=== PATIENT | female | born 1980 | race Caucasian/White ===

== ENCOUNTER 2017-09-26 20:33 | Emergency (ER) | payer MEDICAID, SELFPAY ==
[2017-09-26 20:34] VITALS: BP 160/95; PULSE 92; RESP 18; TEMP 36.8; O2SAT 98; BMI 46.1
--- NOTE | 2017-09-26 21:43 | CT_ITS ---
STUDY: CT BRAIN WITHOUT CONTRAST REASON FOR EXAM: Female, 37 years old. DIZZINESS x 3 days, hx colorectal ca RADIATION DOSAGE (If Supplied By Facility): CTDIvol = ( 44.99 ) mGy, DLP = ( 711.75 ) mGycm TECHNIQUE: Transaxial CT imaging of the brain was performed without administration of intravenous contrast material. Individualized dose optimization techniques were used for this CT. COMPARISON: None. FINDINGS: Normal soft tissue structures. Normal calvarium. Normal size ventricles and extra-axial spaces for the patient's age. Normal white matter tracts of the cerebral hemispheres. Normal basal ganglia and thalami. Normal brainstem. Normal cerebellum. There is no intracranial hemorrhage. There are no findings of an acute ischemic infarction. Normal visualized paranasal sinuses. CT/Brain/Head without Contrast IMPRESSION: Normal unenhanced CT scan of the brain. Electronically Signed: Reyes Rodriguez MD at 22:42 EDT Tel , Service support ,
[2017-09-26] MEDS: proMETHazine 25 MG/ML Syringe 6.25 MG IV (22:00)
[2017-09-26] MEDS: 0.9% Normal Saline 1,000 ML 1000 ML IV (22:00)
[2017-09-26 22:10] LABS: Absolute Lymphocyte Count 2.03 X10^3/ul (0.83-4.51); Absolute Neutrophil Count 5.2 X10^3/uL (2.0-7.7); Basophil# 0.04 X10^3/uL; Basophil% 0.5 % (0-1); Eosinophil# 0.26 X10^3/uL; Eosinophils% 3.2 % (0-5); Hemoglobin 13.4 g/dl (12.0-15.0); Lymphocyte # 2.03 X10^3/ul (4.0); Lymphocyte % 25.3 % (19-41); Mean Corp Hgb Conc 34.4 g/gl (32-36); Mean Corpuscular Hgb 29.1 pg (27.0-32.0); Mean Corpuscular Volume 84.6 fL (81-99); Mean Platelet Vol. 9.1 fl (6.2-12.0); Monocyte# 0.47 X10^3/uL; Monocyte% 5.9 % (0-10); Neutrophil % 64.9 % (47-70); POSITIVE COUNT NO; POSITIVE DIFFERENTIAL NO; POSITIVE MORPHOLOGY NO; Platelet Count 278 K/mm3 (150-450); RBC Distribution Width CV 13.6 % (11.6-14.6); RBC Distribution Width SD 41.3 fl (35.1-43.9); Red Blood Count 4.61 M/mm3 (4.2-5.4)
[2017-09-26 23:09] LABS: ALB/GLOB Ratio 0.9 RATIO (0.9-2.4); AST(SGOT) 28 U/L (15-37); Alanine Aminotransfer ALT/SGPT 65 U/L (13-56); Albumin, Serum 3.3 g/dL (3.2-5.0); Alkaline Phosphatase 67 U/L (45-117); Anion Gap 7 (5-15); BUN 11 mg/dL (7-18); BUN/Creat Ratio 12.8 RATIO (10-20); Calcium,Total 8.5 mg/dL (8.5-10.1); Chloride 104 mmol/L (98-107); Creatinine, Serum 0.86 mg/dL (0.55-1.02); EST Glomerular Filtration Rate 79 mL/min (>60); Est Glom Filt Rate - Afr Amer 96 mL/min (>60); Estimated Creatinine Clearance 67.59 ml/min; Globulin 3.6 g/dL (2.2-4.2); Glucose 204 mg/dL (74-106); Lipase 96 U/L (73-393); Potassium 3.6 mmol/L (3.5-5.1); Protein, Total 6.9 g/dL (6.4-8.2); Sodium Level 139 mmol/L (136-145)
--- NOTE | 2017-09-26 23:25 | ED.VISSUMM ---
- ER Visit Summary Date of Service: 09/26/17 Chief Complaint: [] Dizziness, abdominal pain, headache History of Present Illness: The patient is a 37 F [] presents with a complaint of dizziness, lightheadedness, abdominal discomfort, headache beginning 3-4 days ago. Patient reports she has liver issues. She reports she recently had a liver biopsy and is awaiting further evaluation of her abdomen. She does report a history of splenomegaly and a history of colorectal cancer with colectomy resulting colostomy and colostomy reversal. Does report an additional surgical history of appendectomy, cholecystectomy, hysterectomy. She reports feeling very weak and faint with an episode of near syncope. She denies syncope at any point. She denies chest pain or shortness of breath. Does report some slight discomfort to her left shoulder/trapezius area. Physical Examination: [] Afebrile, vital signs stable. Morbidly obese female no acute distress cardiovascular exam is regular rate and rhythm. Lungs are clear to auscultation. Abdomen is soft and nontender. No significant lower extremity edema. Test Results: [] CBC, BMP, LFTs, lipase, troponin all within normal limits. CT head negative. Emergency Department Course and Treatment: [] Patient given intravenous limits, Phenergan. On serial examination patient had improvement of symptoms and was amenable to discharge. She was counseled regarding her diagnostic and laboratory findings and will follow up with her primary care physician. Treatment Plan: [] Follow-up with PCP and/or subspecialist. Disposition: [] Discharge, stable. Impression: [] Cephalgia Abdominal pain, unknown etiology Dizziness This note was generated with [employer] dictation software. It may contain incorrect words, spelling, and punctuation that were not noted in review of the chart prior to signing ED Disposition - Plan for ED Patient: Chief Complaint: Dizziness Referrals: Zane Dutton MD [Primary Care Provider] -
--- NOTE | 2017-09-26 23:29 | ED.DEP ---
ED Disposition - Plan for ED Patient: Disposition: Home or Assisted Living Chief Complaint: Dizziness Instructions: ED Near Syncope Unkn Referrals: Zane Dutton MD [Primary Care Provider] -
[2017-09-26 23:45] VITALS: BP 124/81; PULSE 75; RESP 16; O2SAT 96
== END 2017-09-26 23:45 | disposition home or self-care (01) ==
PROVIDERS: Emergency Provider Emergency Medicine; Family Provider Family Medicine; PCP Family Medicine
DX: R51 Headache (principal); R10.9 Unspecified abdominal pain; R42 Dizziness and giddiness; R05 Cough; E11.9 Type 2 diabetes mellitus without complications; I10 Essential (primary) hypertension; E66.01 Morbid (severe) obesity due to excess calories; Z85.038 Personal history of other malignant neoplasm of large intestine; Z90.49 Acquired absence of other specified parts of digestive tract; Z90.710 Acquired absence of both cervix and uterus; Z93.3 Colostomy status
CPT/HCPCS: 70450; 80053; 83690; 84484; 85025; 96361; 96374; 99283; J7030; A4216

== ENCOUNTER 2019-06-23 19:38 | Emergency (ER) | payer OTHER, SELFPAY ==
[2019-06-23 19:39] VITALS: BP 188/114; PULSE 86; RESP 16; TEMP 36.4; O2SAT 97; BMI 43.4
--- NOTE | 2019-06-23 20:17 | CT_ITS ---
STUDY: CT BRAIN WITHOUT CONTRAST REASON FOR EXAM: Female, 39 years old. HYPERTENSION, UNBEARABLE HEADACHE RADIATION DOSAGE (If Supplied By Facility): CTDIvol = ( 44.99 ) mGy, DLP = ( 812.98 ) mGycm TECHNIQUE: Transaxial CT imaging of the brain was performed without administration of intravenous contrast material. Individualized dose optimization techniques were used for this CT. COMPARISON: September 26, 2017 FINDINGS: Normal soft tissue structures. Normal calvarium. No hydrocephalus. No visualized dense artery sign. No midline shift. Normal size ventricles and extra-axial spaces for the patient''s age. Normal white matter tracts of the cerebral hemispheres. Normal basal ganglia and thalami. Normal brainstem. Normal cerebellum. There is no intracranial hemorrhage. There are no findings of an acute ischemic infarction. Normal visualized paranasal sinuses. CT/Brain/Head without Contrast IMPRESSION: No demonstrated acute or significant intracranial abnormality. Electronically Signed: Carlos Mann MD at 21:17 EST , Service support ,
--- NOTE | 2019-06-23 20:18 | ED.DCSUM_ITS ---
- ER Visit Summary Date of Service: 06/23/19 Chief Complaint: Hypertension and headache History of Present Illness: The patient is a 39 F who presents with elevated blood pressure and headache that has been constant for the past week. Patient states her blood pressure has always been elevated but has gotten worse over the last week. Patient states she has been compliant with her antihypertensive medications. Patient states she has developed a generalized headache. Patient states she has been having some trouble seeing her computer because of the headache. Patient also admits to some photophobia. Patient denies any scotoma or other visual changes. Patient admits to some nausea and vomiting. Patient denies any fevers or chills. Patient denies any chest pain or shortness of breath. Physical Examination: Vital signs are stable except for an elevated blood pressure of 188/114. Patient is afebrile. Patient is in no acute distress. Oral mucosa is pink and moist. Neck is supple. Trachea is midline. There is no JVD noted. Heart was regular rate and rhythm. Lungs are clear and equal bilaterally. Abdomen is soft. Bowel sounds are normal. There is no tenderness. There is no rebound or guarding noted. Skin is warm dry. Cranial nerves II through XII are intact. There are no focal motor or sensory deficits noted. Extremities are intact. There is no calf tenderness or edema. Test Results: CBC, basic metabolic profile, and serum hCG were obtained and were all within normal limits. CT scan of the brain was obtained and was within normal limits. This was interpreted by the radiologist and reviewed by myself. Emergency Department Course and Treatment: Patient was given Reglan and Benadryl here. Patient was given a dose of clonidine. Patient was feeling better on reevaluation. Patient was instructed to keep a log of her blood pressures and follow-up with her primary care physician for further management of her blood pressure medications. Patient was instructed to rest in a dark quiet room. Patient was instructed to return if worse in any way. Patient understood and was agreeable with the plan. All questions were answered. Disposition: Discharge home Impression: 1. Headache 2. Hypertension This note was generated with [employer] software. It may contain incorrect words, spelling, and punctuation that were not noted in review of the chart prior to signing ED Disposition - Plan for ED Patient: Disposition: Home or Assisted Living Diagnosis: Headache, Hypertension Instructions: HYPERTENSION, Established Referrals: Zane Dutton MD [Primary Care Provider] - 3-5 Days
[2019-06-23 20:30] LABS: Absolute Lymphocyte Count 2.51 X10^3/uL (0.83-4.51); Absolute Neutrophil Count 4.3 X10^3/uL (2.0-7.7); Basophil# 0.05 X10^3/uL; Basophil% 0.6 % (0-1); Eosinophil# 0.35 X10^3/uL; Eosinophils% 4.5 % (0-5); Hematocrit 42.6 % (37-47); Hemoglobin 14.2 g/dL (12.0-15.0); Lymphocyte # 2.51 X10^3/ul (4.0); Lymphocyte % 32.3 % (19-41); Mean Corp Hgb Conc 33.3 g/dL (32-36); Mean Corpuscular Hgb 28.6 pg (27.0-32.0); Mean Corpuscular Volume 85.7 fL (81-99); Mean Platelet Vol. 8.8 fl (6.2-12.0); Monocyte# 0.47 X10^3/uL; NRBC Flagged by Analyzer 0 % (0-5); Neutrophil # 4.34 X10^3/uL (2.7-7.7); Platelet Count 281 K/mm3 (150-450); RBC Distribution Width CV 12.9 % (11.6-14.6); RBC Distribution Width SD 39.9 fl (35.1-43.9); Red Blood Count 4.97 M/mm3 (4.2-5.4); White Blood Count 7.8 K/mm3 (4.4-11.0)
[2019-06-23] MEDS: cloNIDine HCl 0.1 MG Tablet PO (20:35)
[2019-06-23] MEDS: Metoclopramide 10 MG/2 ML Vial IV (20:36)
[2019-06-23] MEDS: DiphenhydrAMINE 50 MG/ML Syringe 25 MG IV (20:36)
[2019-06-23 20:43] LABS: AST(SGOT) 26 U/L (15-37); Alanine Aminotransfer ALT/SGPT 63 U/L (13-56); Albumin, Serum 3.7 g/dL (3.2-5.0); Alkaline Phosphatase 70 U/L (45-117); Anion Gap 2 (5-15); BUN 11 mg/dL (7-18); Calcium,Total 8.9 mg/dL (8.5-10.1); Chloride 107 mmol/L (98-107); Creatinine, Serum 0.85 mg/dL (0.55-1.02); EST Glomerular Filtration Rate 79 mL/min (>60); Est Glom Filt Rate - Afr Amer 96 mL/min (>60); Estimated Creatinine Clearance 67.05 ml/min; Globulin 3.7 g/dL (2.2-4.2); Glucose 175 mg/dL (74-106); Potassium 3.9 mmol/L (3.5-5.1); Protein, Total 7.4 g/dL (6.4-8.2); Sodium Level 140 mmol/L (136-145)
[2019-06-23 21:10] VITALS: RESP 18
[2019-06-23 21:26] LABS: Internal QC Validated? YES +Cl - CLEAR BKGD; Pregnancy, Serum, hCG Quali. NEGATIVE Negative
[2019-06-23 21:27] VITALS: BP 145/91
[2019-06-23 21:42] VITALS: BP 132/76; PULSE 75; RESP 16; O2SAT 98
== END 2019-06-23 21:44 | disposition home or self-care (01) ==
PROVIDERS: Emergency Provider Emergency Medicine; PCP Family Medicine
DX: R51 Headache (principal); I10 Essential (primary) hypertension; E66.9 Obesity, unspecified; E11.9 Type 2 diabetes mellitus without complications; Z79.899 Other long term (current) drug therapy
CPT/HCPCS: 70450; 80053; 84703; 85025; 96374; 96375; 99283; A4216

== ENCOUNTER 2020-10-15 17:55 | Emergency (ER) | payer OTHER, SELFPAY ==
[2020-10-15] VITALS (7 sets, daily range): BP systolic 184–208; BP diastolic 103–110; PULSE 76–82; RESP 14–20; TEMP 36.6; O2SAT 94–96; BMI 41.6
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
[2020-10-15] MEDS: Acetaminophen 325 MG Tablet 650 MG PO (18:31)
[2020-10-15 18:47] LABS: Absolute Lymphocyte Count 1.77 X10^3/uL (0.83-4.51); Absolute Neutrophil Count 6.5 X10^3/uL (2.0-7.7); Basophil# 0.04 X10^3/uL; Basophil% 0.4 % (0-1); Eosinophil# 0.15 X10^3/uL; Eosinophils% 1.7 % (0-5); Hematocrit 45.1 % (37-47); Hemoglobin 14.7 g/dL (12.0-15.0); Lymphocyte # 1.77 X10^3/ul (0.83-4.51); Lymphocyte % 19.7 % (19-41); Mean Corp Hgb Conc 32.6 g/dL (32-36); Mean Corpuscular Hgb 27.8 pg (27.0-32.0); Mean Corpuscular Volume 85.4 fL (81-99); Mean Platelet Vol. 8.8 fl (6.2-12.0); Monocyte# 0.43 X10^3/uL; Monocyte% 4.8 % (0-10); NRBC Flagged by Analyzer 0 % (0-5); Neutrophil # 6.54 X10^3/uL (2.7-7.7); Platelet Count 340 K/mm3 (150-450); RBC Distribution Width CV 13.2 % (11.6-14.6); RBC Distribution Width SD 40.6 fl (35.1-43.9); Red Blood Count 5.28 M/mm3 (4.2-5.4)
[2020-10-15 18:50] LABS: Internal QC Validated? YES +Cl - CLEAR BKGD
[2020-10-15 18:56] LABS: Pregnancy, Serum, hCG Quali. NEGATIVE Negative
[2020-10-15 19:00] LABS: Anion Gap 7 (5-15); BUN 14 mg/dL (7-18); BUN/Creat Ratio 18.1 RATIO (10-20); Calcium,Total 9.1 mg/dL (8.5-10.1); Chloride 103 mmol/L (98-107); Creatinine, Serum 0.78 mg/dL (0.55-1.02); EST Glomerular Filtration Rate 87 mL/min (>60); Est Glom Filt Rate - Afr Amer 106 mL/min (>60); Estimated Creatinine Clearance 72.35 ml/min; Glucose 188 mg/dL (74-106); Potassium 3.9 mmol/L (3.5-5.1); Sodium Level 138 mmol/L (136-145)
[2020-10-15 19:07] LABS: Amphetamine Urine VISTA NEGATIVE (<1000 ng/mL); Barbiturate Urine VISTA NEGATIVE (< 200 ng/mL); Benzodiazepine Urine VISTA NEGATIVE (< 200 ng/mL); Cocaine Urine VISTA NEGATIVE (< 300 ng/mL); Ecstacy Urine VISTA NEGATIVE (< 500 ng/mL); Methadone Urine VISTA NEGATIVE (< 300 ng/mL); PCP Urine VISTA NEGATIVE (< 25 ng/mL); THC Urine VISTA NEGATIVE (< 50 ng/mL); Vista UDS pH Range 6
[2020-10-16] VITALS (7 sets, daily range): BP systolic 152–161; BP diastolic 80–95; PULSE 60–78; RESP 16–18; TEMP 36.6; O2SAT 99
--- NOTE | 2020-10-16 05:13 | NURSING ---
CALLED TO CHECK ON STATUS. WAS INFORMED PENDING AT [facility] BUT STILL WAITING TO HEAR BACK. CRISIS CHECK WITH OTHER HOSPITALS BUT EVERYWHERE ELSE IS FULL.
[2020-10-16] MEDS: Pantoprazole Sodium 40 MG Tablet PO (06:00)
--- NOTE | 2020-10-16 07:13 | NURSING ---
called squad, eta is 30 min
== END 2020-10-16 07:53 ==
PROVIDERS: Emergency Provider Emergency Medicine
DX: F32.9 Major depressive disorder, single episode, unspecified (principal); R45.851 Suicidal ideations
CPT/HCPCS: 36415; 80048; 80307; 82077; 84703; 85025; 87426; 99285

== ENCOUNTER 2020-10-21 02:26 | Inpatient (IN) | payer OTHER, SELFPAY ==
[2020-10-15 17:56] VITALS: BMI 41.6
[2020-10-21] VITALS (9 sets, daily range): BP systolic 95–194; BP diastolic 54–117; PULSE 53–74; RESP 16; TEMP 36.5–36.9; O2SAT 94–98; BMI 41.6; BMI 40.7
--- NOTE | 2020-10-21 02:39 | EKG12_ITS ---
Test Reason : SUBSTANCE ABUSE Blood Pressure : / mmHG Vent. Rate : 066 BPM Atrial Rate : 066 BPM P-R Int : 164 ms QRS Dur : 088 ms QT Int : 422 ms P-R-T Axes : 044 -03 025 degrees QTc Int : 442 ms Normal sinus rhythm Septal infarct , age undetermined , cannot be excluded Abnormal ECG Confirmed by SHANNON LAO, MATTHIEU ([id number]), purchasing expeditor [address] ([id number]) on 10/24/2020 9:58:23 AM Referred By: GERTRUDE Confirmed By:MATTHIEU ORTEGA MD
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
[2020-10-21 03:00] LABS: Absolute Lymphocyte Count 2.24 X10^3/uL (0.83-4.51); Absolute Neutrophil Count 5.7 X10^3/uL (2.0-7.7); Basophil# 0.05 X10^3/uL; Basophil% 0.6 % (0-1); Eosinophils% 2.3 % (0-5); Hematocrit 43.4 % (37-47); Hemoglobin 14.4 g/dL (12.0-15.0); Lymphocyte # 2.24 X10^3/ul (0.83-4.51); Lymphocyte % 25.3 % (19-41); Mean Corp Hgb Conc 33.2 g/dL (32-36); Mean Corpuscular Hgb 27.9 pg (27.0-32.0); Mean Corpuscular Volume 83.9 fL (81-99); Mean Platelet Vol. 8.7 fl (6.2-12.0); Monocyte# 0.57 X10^3/uL; Monocyte% 6.4 % (0-10); NRBC Flagged by Analyzer 0 % (0-5); Neutrophil # 5.73 X10^3/uL (2.7-7.7); Neutrophil % 64.7 % (47-70); Platelet Count 328 K/mm3 (150-450); RBC Distribution Width CV 12.8 % (11.6-14.6); RBC Distribution Width SD 38.8 fl (35.1-43.9); Red Blood Count 5.17 M/mm3 (4.2-5.4); White Blood Count 8.9 K/mm3 (4.4-11.0)
[2020-10-21 03:13] LABS: Amphetamine Urine VISTA NEGATIVE (<1000 ng/mL); Barbiturate Urine VISTA NEGATIVE (< 200 ng/mL); Benzodiazepine Urine VISTA NEGATIVE (< 200 ng/mL); Cocaine Urine VISTA NEGATIVE (< 300 ng/mL); Ecstacy Urine VISTA NEGATIVE (< 500 ng/mL); Internal QC Validated? YES +Cl - CLEAR BKGD; Methadone Urine VISTA NEGATIVE (< 300 ng/mL); PCP Urine VISTA NEGATIVE (< 25 ng/mL); Pregnancy, Serum, hCG Quali. NEGATIVE Negative; THC Urine VISTA NEGATIVE (< 50 ng/mL); Vista UDS pH Range 7
[2020-10-21 03:24] LABS: Alcohol, Blood (Medical)-Serum < 3.0 mg/dL
[2020-10-21 03:36] LABS: AST(SGOT) 10 U/L (15-37); Alanine Aminotransfer ALT/SGPT 47 U/L (13-56); Albumin, Serum 3.8 g/dL (3.2-5.0); Alkaline Phosphatase 88 U/L (45-117); Anion Gap 8 (5-15); BUN 8 mg/dL (7-18); BUN/Creat Ratio 10.7 RATIO (10-20); Calcium,Total 8.4 mg/dL (8.5-10.1); Chloride 106 mmol/L (98-107); Creatinine, Serum 0.75 mg/dL (0.55-1.02); EST Glomerular Filtration Rate 91 mL/min (>60); Est Glom Filt Rate - Afr Amer 111 mL/min (>60); Estimated Creatinine Clearance 75.24 ml/min; Glucose 184 mg/dL (74-106); Protein, Total 7.8 g/dL (6.4-8.2); Sodium Level 141 mmol/L (136-145)
[2020-10-21] MEDS: cloNIDine HCl 0.1 MG Tablet PO (03:52)
--- NOTE | 2020-10-21 04:02 | PCM.HP.STD ---
HPI - General General Date of Admission: 10/21/20 Date of Service: 10/21/20 Chief Complaint: Alcohol withdrawal HPI Narrative FATUMA MCCORMICK, is a 40 F who presents to the emergency room at [facility] requesting services for alcohol withdrawal. Patient states she drinks approximately 6 pack a day, she has a history of depression and hypertension, she states she does not take medications for either one of them because she did not think she needed antidepressants and she does not like the doctor who prescribed her blood pressure medications. According to the ER physician, patient has recently had a psychiatric admission for suicidal ideation last week. The ER physician stated that the patient was drinking on the evening of 10/20/2020 and when she got home she had some kind of social altercation, she was instructed by her family to seek detox services at [facility]. Patient complains of this examiner of nausea and headache. Labs obtained in the emergency room were remarkable for a glucose of 184, CBC was unremarkable, urine tox screen was negative, ethyl alcohol level was under 3. It is my opinion that the patient is confabulating some of her history, it is obvious she is not taking benzodiazepines-she told the emergency room physician she was taking them from her friend-up to 3 Xanax is a day, and it appears from her low alcohol level, she is not drinking as much as she states she was tonight. She told the emergency room doctor that she was at a bar and drank at least 12 drinks last night. Patient will be admitted to the alcohol detox program at [facility], orders were entered using the alcohol detox order set, on examination, patient appears slightly nervous but does not appear to be actively undergoing withdrawal at this time per my impression. [facility] Medical History Alcohol use Anxiety Depression Diabetes Hypertension Home Medications buspirone 5 mg PO TID 10/21/20 [History Last Taken Unknown] escitalopram oxalate 10 mg PO DAILY 10/21/20 [History Last Taken Unknown] trazodone 50 mg PO DAILY 10/21/20 [History Last Taken Unknown] Allergy/AdvReac Type Severity Reaction Status Date / Time aspirin Allergy Shortness Verified 10/21/20 02:31 of breath hydrocodone bitartrate Allergy Other Verified 10/21/20 02:31 [From Vicodin] morphine Allergy Other Verified 10/21/20 02:31 sulfamethoxazole Allergy Itching Verified 10/21/20 02:31 [From Bactrim] trimethoprim [From Bactrim] Allergy Itching Verified 10/21/20 02:31 Social History (Updated 10/21/20 @ 02:[address] Robb Longo, DO) Smoking Status: Never smoker substance use type: other details: Benzodiazepines ROS Constitutional Constitutional: Denies anorexia, change in weight, fever(s), night sweats or weakness Eyes Eyes: Denies blurry vision, change in vision, discharge from eye(s) or eye pain Cardiovascular Cardiovascular: Denies chest pain, claudication, edema or palpitations Respiratory/Chest Respiratory/Chest: Denies cough, hemoptysis, shortness of breath at rest or shortness of breath with exertion Gastrointestinal Gastrointestinal: Reports nausea; Denies abdominal pain, constipation, diarrhea, hematemesis, hematochezia, melena or vomiting Genitourinary Genitourinary: Denies dysuria, hematuria, urinary frequency, urinary hesitancy, urinary incontinence or urinary urgency Musculoskeletal Musculoskeletal: Denies back pain, joint pain, joint stiffness, joint swelling, myalgias or neck pain Neurologic Neurologic: Reports headache(s); Denies abnormal gait, abnormal speech, dizziness, focal weakness, loss of vision, numbness, other visual disturbances, paresthesias, syncope or tingling Psychiatric Psychiatric: Denies anxiety, cognitive impairment, depression, irritability, mood swings or suicidal ideation Endocrine Endocrinology: Denies change in body appearance, cold intolerance, excessive sweating, heat intolerance, polydipsia or polyuria Hematologic/Lymphatic Hematologic/Lymphatic: Denies none, anemia, easy bleeding, easy bruising or lymphadenopathy Allergic/Immunologic Allergic/Immunologic: Denies rhinitis, urticaria, eczemia or asthma Vital Signs Vital Signs Vital Signs: 10/21/20 02:26 Temperature 98.4 F Temperature Source Temporal Pulse Rate 74 Respiratory Rate 16 Blood Pressure 194/117 H Blood Pressure Mean 142 Pulse Ox 96 Oxygen Delivery Method Room Air Weight Weight: 100 kg Body Mass Index (BMI) 41.6 Physical Exam Const Constitutional Narrative: Patient appears slightly nervous at the time of my examination General Appearance: well kempt and well developed Orientation / Consciousness: awake, oriented to person, oriented to place and oriented to time HEENT normocephalic, head/scalp atraumatic, hearing grossly normal bilaterally and moist oral mucous membranes Eyes PERRL, EOMs intact bilaterally and conjunctivae normal Neck nuchal rigidity, supple, no JVD, thyroid normal and no carotid bruits General: trachea midline Resp normal respiratory effort, no retractions, no use of accessory muscles and clear to auscultation bilaterally Auscultation: Negative for rales, rhonchi or wheezes Cardio regular rate, regular rhythm, S1 normal heart sound, S2 normal heart sound, no murmurs, no rub, no gallops and no clicks GI normal to inspection, nondistended, normoactive bowel sounds, soft to palpation, non-tender and non-distended Extremity normal to inspection, full ROM and no clubbing, cyanosis or edema Skin no rashes or lesions noted General Skin Exam: no breakdown Neuro oriented x3, CN's II-XII intact bilaterally, moves all extremities, no focal motor deficits and no sensory deficits noted Sensorium / Orientation: awake and alert Speech: speech normal Motor Exam: strength 5/5 throughout Psych thought process normal Psych Narrative: Patient appears mildly nervous, she is fidgety during my examination, her affect is flat she appears mildly depressed. Results Lab / Micro Data Result Diagrams: 10/21/20 02:50 10/21/20 02:50 Labs: Laboratory Results - last 24 hr 10/21/20 10/21/20 10/21/20 02:50 02:50 02:50 WBC 8.9 RBC 5.17 Hgb 14.4 Hct 43.4 MCV 83.9 MCH 27.9 MCHC 33.2 RDW Std Deviation 38.8 RDW Coeff of Layne 12.8 Plt Count 328 MPV 8.7 Immature Gran % (Auto) 0.700 Neut % (Auto) 64.7 Lymph % (Auto) 25.3 [place] % (Auto) 6.4 Eos % (Auto) 2.3 Baso % (Auto) 0.6 Absolute Neuts (auto) 5.7 Absolute Lymphs (auto) 2.24 Nucleated RBC % 0 Sodium 141 Potassium 4.0 Chloride 106 Carbon Dioxide 27.0 Anion Gap 8 BUN 8 Creatinine 0.75 Estim Creat Clear Calc 75.24 Est GFR (MDRD) Af Amer 111 Est GFR (MDRD) Non-Af 91 BUN/Creatinine Ratio 10.7 Glucose 184 H Calcium 8.4 L Total Bilirubin 0.30 AST 10 L ALT 47 Alkaline Phosphatase 88 Total Protein 7.8 Albumin 3.8 Globulin 4.0 Albumin/Globulin Ratio 1.0 Serum , Qual NEGATIVE Urine Opiates Screen Urine Methadone Screen Ur Barbiturates Screen Ur Phencyclidine Scrn Ur Amphetamines Screen U Methamphetamin-MDMA U Benzodiazepines Scrn Urine Cocaine Screen U Cannabinoids Screen Ur Drug Screen Comment Ethyl Alcohol 10/21/20 10/21/20 02:50 02:50 WBC RBC Hgb Hct MCV MCH MCHC RDW Std Deviation RDW Coeff of Layne Plt Count MPV Immature Gran % (Auto) Neut % (Auto) Lymph % (Auto) [place] % (Auto) Eos % (Auto) Baso % (Auto) Absolute Neuts (auto) Absolute Lymphs (auto) Nucleated RBC % Sodium Potassium Chloride Carbon Dioxide Anion Gap BUN Creatinine Estim Creat Clear Calc Est GFR (MDRD) Af Amer Est GFR (MDRD) Non-Af BUN/Creatinine Ratio Glucose Calcium Total Bilirubin AST ALT Alkaline Phosphatase Total Protein Albumin Globulin Albumin/Globulin Ratio Serum , Qual Urine Opiates Screen NEGATIVE Urine Methadone Screen NEGATIVE Ur Barbiturates Screen NEGATIVE Ur Phencyclidine Scrn NEGATIVE Ur Amphetamines Screen NEGATIVE U Methamphetamin-MDMA NEGATIVE U Benzodiazepines Scrn NEGATIVE Urine Cocaine Screen NEGATIVE U Cannabinoids Screen NEGATIVE Ur Drug Screen Comment Ethyl Alcohol < 3.0 Assessment & Plan Assessment/Plan (1) Alcohol abuse: PLAN: 1. Alcohol withdrawal-again, this examiner is skeptical that she is actively going through alcohol withdrawal at this time but she requests admission services for alcohol detox. Patient will be admitted to [place] [id number], orders were entered using alcohol detox order set, she will be seen by addiction social work supervisor. #2 uncontrolled hypertension-secondary to noncompliance with medication, I have placed the patient on lisinopril and amlodipine #3 type 2 diabetes-patient will be placed on an 1800-calorie diabetic diet, fingerstick blood sugars will be ordered with sliding scale insulin coverage #4 chronic alcoholism #5 chronic anxiety and depression #6 noncompliance with medical regimen Charges/Coding Visit Charges Inpatient E&M: 51336 Init Hosp L3
[2020-10-21] MEDS: Phenobarbital 32.4 MG Tablet 64.8 MG PO ×4 (05:13→21:34)
[2020-10-21] MEDS: amLODIPine 5 MG Tablet PO (05:14)
[2020-10-21] MEDS: Lisinopril 20 MG Tablet PO (05:14)
[2020-10-21] MEDS: busPIRone 5 MG Tablet PO ×2 (06:33→21:43)
[2020-10-21 06:40] LABS: Bedside Glucose 140 mg/dL (70-110)
[2020-10-21] MEDS: Folic Acid 1 MG Tablet PO (09:06)
[2020-10-21] MEDS: Thiamine Hydrochloride 100 MG Tablet PO ×2 (09:06→17:28)
[2020-10-21] MEDS: traZODone 50 MG Tablet PO (09:07)
[2020-10-21] MEDS: Escitalopram Oxalate 10 MG Tablet PO (09:07)
[2020-10-21] MEDS: Ibuprofen 600 MG Tablet PO (09:19)
[2020-10-21] MEDS: Dicyclomine 10 MG Capsule 20 MG PO (09:19)
--- NOTE | 2020-10-21 10:54 | PN.HOSP_ITS ---
Subjective Subjective Patient seen and examined. She is being managed for acute alcohol withdrawal. Patient has no complaints this morning. Review of systems otherwise negative. She has remained hemodynamically stable. She is on alcohol withdrawal protocol with phenobarbital. Objective Data Objective Data Vital Signs: Vital Signs Temp Pulse Resp BP Pulse Ox 97.7 F L 66 16 115/69 96 10/21/20 09:03 10/21/20 09:03 10/21/20 09:03 10/21/20 09:03 10/21/20 09:03 Oxygen Delivery Method Room Air Weight: 215 lb 9 oz Body Mass Index (BMI) 40.7 Lab / Micro Data Result Diagrams: 10/21/20 02:50 10/21/20 02:50 Labs: Laboratory Results - last 24 hr 10/21/20 10/21/20 10/21/20 02:50 02:50 02:50 WBC 8.9 RBC 5.17 Hgb 14.4 Hct 43.4 MCV 83.9 MCH 27.9 MCHC 33.2 RDW Std Deviation 38.8 RDW Coeff of Layne 12.8 Plt Count 328 MPV 8.7 Immature Gran % (Auto) 0.700 Neut % (Auto) 64.7 Lymph % (Auto) 25.3 [place] % (Auto) 6.4 Eos % (Auto) 2.3 Baso % (Auto) 0.6 Absolute Neuts (auto) 5.7 Absolute Lymphs (auto) 2.24 Nucleated RBC % 0 Sodium 141 Potassium 4.0 Chloride 106 Carbon Dioxide 27.0 Anion Gap 8 BUN 8 Creatinine 0.75 Estim Creat Clear Calc 75.24 Est GFR (MDRD) Af Amer 111 Est GFR (MDRD) Non-Af 91 BUN/Creatinine Ratio 10.7 Glucose 184 H Calcium 8.4 L Total Bilirubin 0.30 AST 10 L ALT 47 Alkaline Phosphatase 88 Total Protein 7.8 Albumin 3.8 Globulin 4.0 Albumin/Globulin Ratio 1.0 Serum , Qual NEGATIVE Urine Opiates Screen Urine Methadone Screen Ur Barbiturates Screen Ur Phencyclidine Scrn Ur Amphetamines Screen U Methamphetamin-MDMA U Benzodiazepines Scrn Urine Cocaine Screen U Cannabinoids Screen Ur Drug Screen Comment Ethyl Alcohol POC Glucose 10/21/20 10/21/20 10/21/20 02:50 02:50 06:32 WBC RBC Hgb Hct MCV MCH MCHC RDW Std Deviation RDW Coeff of Layne Plt Count MPV Immature Gran % (Auto) Neut % (Auto) Lymph % (Auto) [place] % (Auto) Eos % (Auto) Baso % (Auto) Absolute Neuts (auto) Absolute Lymphs (auto) Nucleated RBC % Sodium Potassium Chloride Carbon Dioxide Anion Gap BUN Creatinine Estim Creat Clear Calc Est GFR (MDRD) Af Amer Est GFR (MDRD) Non-Af BUN/Creatinine Ratio Glucose Calcium Total Bilirubin AST ALT Alkaline Phosphatase Total Protein Albumin Globulin Albumin/Globulin Ratio Serum , Qual Urine Opiates Screen NEGATIVE Urine Methadone Screen NEGATIVE Ur Barbiturates Screen NEGATIVE Ur Phencyclidine Scrn NEGATIVE Ur Amphetamines Screen NEGATIVE U Methamphetamin-MDMA NEGATIVE U Benzodiazepines Scrn NEGATIVE Urine Cocaine Screen NEGATIVE U Cannabinoids Screen NEGATIVE Ur Drug Screen Comment Ethyl Alcohol < 3.0 POC Glucose 140 H Physical Exam Const alert, oriented x3 and no apparent distress Exam Limitations: no limitations Nutritional Appearance: cachectic HEENT head/scalp atraumatic, moist oral mucous membranes and oropharynx normal Head and Scalp: normocephalic Eyes PERRL, EOMs intact bilaterally and conjunctivae normal Neck no lymphadenopathy, supple and no JVD Resp normal respiratory effort, no retractions, no use of accessory muscles and clear to auscultation bilaterally Cardio regular rate, regular rhythm, S1 normal heart sound, S2 normal heart sound and no murmurs GI normal to inspection, nondistended, normoactive bowel sounds, soft to palpation, non-tender and non-distended Extremity normal to inspection, full ROM and no clubbing, cyanosis or edema Peripheral Pulses: Yes pulses 2+ throughout Skin no rashes or lesions noted Neuro oriented x3 Sensorium / Orientation: awake and alert Psych affect normal Assessment & Plan Assessment/Plan (1) Alcohol abuse: PLAN: #Acute alcohol withdrawal * on alcohol withdrawal protocol with phenobarbital * on multivite, folic acid and thiamine * monitor CIWA score * #Hypertension: On amlodipine and lisinopril #Type 2 diabetes mellitus: On insulin sliding scale. Accu-Cheks AC at bedtime. DVT prophylaxis: low risk, encourage ambulation Charges/Coding Visit Charges Inpatient E&M: 15382 Subs Hosp L2
--- NOTE | 2020-10-21 10:57 | CASEMGMT ---
SW Note SW Referral: Casemanager as patient is in RAMP SW Reason for Referral: Ramp Program SW called Jacki Colin RN and she was unaware if Treatment Navigator had been advised of patient's admission. RANJAN called Dee Dee Treatment Navigator at [facility], and she advised that she was called last night about patient but was unsure if patient was admitted. RANJAN advised patient was in Room 303. Dee Dee advised she would be in today to speak to patient. RANJAN updated Jacki Colin RN, that Dee Dee from [facility] will be in today to speak to patient. No further Social Work needs at this time Plan: Follow up with [facility] Gisella ROGER
[2020-10-21 11:30] LABS: Bedside Glucose 192 mg/dL (70-110)
[2020-10-21] MEDS: Insulin Lispro 100 UNIT/ML INSULN.PEN SC (11:53)
[2020-10-21 16:31] LABS: Bedside Glucose 147 mg/dL (70-110)
[2020-10-21 21:51] LABS: Bedside Glucose 129 mg/dL (70-110)
[2020-10-22] VITALS (7 sets, daily range): BP systolic 110–137; BP diastolic 61–76; PULSE 55–75; RESP 16; TEMP 36.4–36.8; O2SAT 97–100
[2020-10-22] MEDS: Phenobarbital 32.4 MG Tablet 64.8 MG PO ×6 (01:29→21:24)
[2020-10-22] MEDS: busPIRone 5 MG Tablet PO ×3 (05:09→21:25)
[2020-10-22 06:56] LABS: Bedside Glucose 128 mg/dL (70-110)
--- NOTE | 2020-10-22 07:53 | PN.HOSP_ITS ---
Subjective Subjective Patient seen and examined. She has no complaints. Review of systems is otherwise negative. Objective Data Objective Data Vital Signs: Vital Signs Temp Pulse Resp BP Pulse Ox 97.6 F L 55 L 16 110/69 100 10/22/20 06:34 10/22/20 06:34 10/22/20 06:34 10/22/20 06:34 10/22/20 06:34 Oxygen Flow Rate (L/min) 95 Oxygen Delivery Method Room Air Weight: 215 lb 9 oz Body Mass Index (BMI) 40.7 Intake & Output: Intake and Output for Last 24 Hours 10/20/20 10/21/20 10/22/20 23:59 23:59 23:59 Intake Total 350 / 350 Output Total 0 / 0 Balance 350 / 350 0 / 0 Lab / Micro Data Result Diagrams: 10/21/20 02:50 10/21/20 02:50 Labs: Laboratory Results - last 24 hr 10/21/20 10/21/20 10/21/20 11:16 15:59 21:42 POC Glucose 192 H 147 H 129 H 10/22/20 06:28 POC Glucose 128 H Physical Exam Const alert, oriented x3 and no apparent distress General Appearance: well kempt and well developed Orientation / Consciousness: awake, oriented to person, oriented to place and oriented to time Exam Limitations: no limitations Nutritional Appearance: cachectic HEENT normocephalic, head/scalp atraumatic, hearing grossly normal bilaterally, moist oral mucous membranes and oropharynx normal Head and Scalp: normocephalic Eyes PERRL, EOMs intact bilaterally and conjunctivae normal Neck nuchal rigidity, no lymphadenopathy, supple, no JVD, thyroid normal and no carotid bruits General: trachea midline Resp normal respiratory effort, no retractions, no use of accessory muscles and clear to auscultation bilaterally Auscultation: Negative for rales, rhonchi or wheezes Cardio regular rate, regular rhythm, S1 normal heart sound, S2 normal heart sound, no murmurs, no rub, no gallops and no clicks GI normal to inspection, nondistended, normoactive bowel sounds, soft to palpation, non-tender and non-distended Extremity normal to inspection, full ROM and no clubbing, cyanosis or edema Skin no rashes or lesions noted General Skin Exam: no breakdown Neuro oriented x3, CN's II-XII intact bilaterally, moves all extremities, no focal motor deficits and no sensory deficits noted Sensorium / Orientation: awake and alert Speech: speech normal Motor Exam: strength 5/5 throughout Psych thought process normal and affect normal Assessment & Plan Assessment/Plan (1) Alcohol abuse: PLAN: #Acute alcohol withdrawal * on alcohol withdrawal protocol with phenobarbital * on multivite, folic acid and thiamine * monitor CIWA score * #Hypertension: On amlodipine and lisinopril #Type 2 diabetes mellitus: On insulin sliding scale. Accu-Cheks AC at bedtime. DVT prophylaxis: low risk, encourage ambulation Charges/Coding Visit Charges Inpatient E&M: 40634 Subs Hosp L2
[2020-10-22] MEDS: Folic Acid 1 MG Tablet PO (08:51)
[2020-10-22] MEDS: Thiamine Hydrochloride 100 MG Tablet PO ×2 (08:51→17:11)
[2020-10-22] MEDS: Lisinopril 20 MG Tablet PO (10:08)
[2020-10-22] MEDS: amLODIPine 5 MG Tablet PO (10:09)
[2020-10-22] MEDS: Escitalopram Oxalate 10 MG Tablet PO (10:09)
[2020-10-22] MEDS: traZODone 50 MG Tablet PO (10:09)
[2020-10-22] MEDS: Insulin Lispro 100 UNIT/ML INSULN.PEN SC ×3 (11:41→21:25)
[2020-10-22] MEDS: Gabapentin 300 MG Capsule PO (11:43)
[2020-10-22 11:55] LABS: Bedside Glucose 220 mg/dL (70-110)
[2020-10-22 17:20] LABS: Bedside Glucose 221 mg/dL (70-110)
[2020-10-22] MEDS: Dicyclomine 10 MG Capsule 20 MG PO (17:45)
[2020-10-22] MEDS: Ibuprofen 600 MG Tablet PO (21:29)
[2020-10-22 21:36] LABS: Bedside Glucose 211 mg/dL (70-110)
[2020-10-23] MEDS: Phenobarbital 32.4 MG Tablet 64.8 MG PO ×3 (01:01→09:19)
[2020-10-23] MEDS: busPIRone 5 MG Tablet PO (05:19)
[2020-10-23 05:22] VITALS: BP 108/75; PULSE 53; RESP 16; TEMP 35.9; O2SAT 96
[2020-10-23 06:40] LABS: Bedside Glucose 143 mg/dL (70-110)
[2020-10-23 09:11] VITALS: BP 127/82; PULSE 56; RESP 18; TEMP 36.4; O2SAT 98
[2020-10-23] MEDS: Lisinopril 20 MG Tablet PO (09:19)
[2020-10-23] MEDS: Thiamine Hydrochloride 100 MG Tablet PO (09:19)
[2020-10-23] MEDS: Folic Acid 1 MG Tablet PO (09:19)
[2020-10-23] MEDS: amLODIPine 5 MG Tablet PO (09:19)
[2020-10-23] MEDS: Escitalopram Oxalate 10 MG Tablet PO (09:19)
[2020-10-23] MEDS: Insulin Lispro 100 UNIT/ML INSULN.PEN SC (11:19)
[2020-10-23 12:21] LABS: Bedside Glucose 169 mg/dL (70-110)
--- NOTE | 2020-10-23 13:35 | PCM.DC ---
Discharge Instructions Diet Discharge Diet: No restrictions Activity Discharge Activity: Return to Normal Activity Dressing / Incision Call your doctor if you observe: Fever of 101 or Higher, Shortness of breath, Dizziness, Fainting spells, Swelling in the ankles and Chest pain Follow Up Care Test Results: Test results from this visit will be discussed in further detail at your follow-up appointment, if applicable. Discharge Plan Admission Admit Date/Time: 10/21/20 04:01 Attending Provider: Johnny López Primary Care Provider: Care Physician,No Primary Instructions Patient Instructions: ED Alcohol Abuse Discharge Orders/Prescriptions Prescriptions: Continued buspirone 5 mg tablet 5 mg PO TID RF: 0 trazodone 50 mg tablet 50 mg PO QHS RF: 0 escitalopram oxalate 10 mg tablet 10 mg PO DAILY RF: 0 Referrals / Follow Up: Care Physician,No Primary [Primary Care Provider] - Disposition Disposition (needs filled in before D/C Order can be placed): Home, self care
[2020-10-23 13:52] VITALS: BP 121/80; PULSE 78; RESP 18; TEMP 36.8; O2SAT 97
--- NOTE | 2020-10-23 14:48 | PHA.DC.MR ---
Pharmacy Service has performed discharge medication reconciliation for this patient. The patient's discharge medication list was reviewed for discrepancies and discrepancies were resolved. Home Medications buspirone 5 mg PO TID 10/21/20 escitalopram oxalate 10 mg PO DAILY 10/21/20 trazodone 50 mg PO QHS 10/21/20
--- NOTE | 2020-10-23 16:52 | PCM.DC.SUM ---
Providers Date of Admission: 10/21/20 Primary Care Physician: No Primary Care Phys Reason For Visit: ALCOHOL WITHDRAWAL Diagnosis Discharge Diagnosis (1) Alcohol abuse: Status: Acute Code(s): F10.10 - Alcohol abuse, uncomplicated Medications at Discharge Home Medications buspirone 5 mg PO TID 10/21/20 escitalopram oxalate 10 mg PO DAILY 10/21/20 trazodone 50 mg PO QHS 10/21/20 Hospital Course Operations None Procedures None Summary of Care Provided Minutes Spent on Discharge: 35 Hospital Course: Per HPI: FATUMA MCCORMICK, is a 40 F who presents to the emergency room at [facility] requesting services for alcohol withdrawal. Patient states she drinks approximately 6 pack a day, she has a history of depression and hypertension, she states she does not take medications for either one of them because she did not think she needed antidepressants and she does not like the doctor who prescribed her blood pressure medications. According to the ER physician, patient has recently had a psychiatric admission for suicidal ideation last week. The ER physician stated that the patient was drinking on the evening of 10/20/2020 and when she got home she had some kind of social altercation, she was instructed by her family to seek detox services at [facility]. Patient complains of this examiner of nausea and headache. Labs obtained in the emergency room were remarkable for a glucose of 184, CBC was unremarkable, urine tox screen was negative, ethyl alcohol level was under 3. It is my opinion that the patient is confabulating some of her history, it is obvious she is not taking benzodiazepines-she told the emergency room physician she was taking them from her friend-up to 3 Xanax is a day, and it appears from her low alcohol level, she is not drinking as much as she states she was tonight. She told the emergency room doctor that she was at a bar and drank at least 12 drinks last night. Patient will be admitted to the alcohol detox program at [facility], orders were entered using the alcohol detox order set, on examination, patient appears slightly nervous but does not appear to be actively undergoing withdrawal at this time per my impression. Hospital Course: 1. Acute alcohol [id number] female presented to the emergency room requesting detox services. She drinks about a sixpack a day and has a history of depression and apparently hypertension when she does not take any medications for. When she initially presented to the hospital she was hypertensive though on the day of admission her hypertension had improved despite not being given the antihypertensive medications. My concern is that her hypertension was secondary to withdrawal symptoms and that it improved with phenobarbital administration instead. I do recommend that she follow-up with her PCP to have outpatient blood pressure monitoring and and continued adjustment of her medications. She has a rehab program that she will call on her own and did not want to go through 180. Encourage continued cessation however she felt good today and wanted to go home despite not being here for 3 days. During her stay her maximum CIWA was of 3. I discussed with her the plan for discharge and she expressed understanding of the risks and benefits of going home and wants to go home today. Physical Exam Const alert, oriented x3 and no apparent distress HEENT normocephalic and moist oral mucous membranes Eyes PERRL, EOMs intact bilaterally and conjunctivae normal Neck supple and no JVD Resp normal respiratory effort, no retractions, no use of accessory muscles and clear to auscultation bilaterally Auscultation: Negative for crackles, rales, rhonchi or wheezes Cardio regular rate, regular rhythm, S1 normal heart sound, S2 normal heart sound and no murmurs GI soft to palpation, non-tender and non-distended; Negative for hepatosplenomegaly Extremity no clubbing, cyanosis or edema Skin no rashes or lesions noted Neuro no focal motor deficits and no sensory deficits noted Psych affect normal ABG / Lab / Microbiology Data Result Diagrams: 10/21/20 02:50 10/21/20 02:50 Laboratory: Laboratory Results - last 24 hr 10/22/20 10/22/20 10/23/20 17:02 21:23 06:37 POC Glucose 221 H 211 H 143 H 10/23/20 11:18 POC Glucose 169 H D/C Instructions Discharge Diet: No restrictions Call your doctor if you observe: Fever of 101 or Higher, Shortness of breath, Dizziness, Fainting spells, Swelling in the ankles and Chest pain Meaningful Use Info Meaningful Use Diagnoses (Choose all that apply): None applicable Discharge Plan Admission Admit Date/Time: 10/21/20 04:01 Attending Provider: Johnny López Primary Care Provider: Care Physician,No Primary Instructions Patient Instructions: ED Alcohol Abuse Discharge Orders/Prescriptions Prescriptions: Continued buspirone 5 mg tablet 5 mg PO TID RF: 0 trazodone 50 mg tablet 50 mg PO QHS RF: 0 escitalopram oxalate 10 mg tablet 10 mg PO DAILY RF: 0 Referrals / Follow Up: Care Physician,No Primary [Primary Care Provider] - Disposition Disposition (needs filled in before D/C Order can be placed): Home, self care Charges/Coding Visit Charges Inpatient E&M: 20128 Disch Hosp
== END 2020-10-23 15:29 | disposition home or self-care (01) | DRG 897 ==
LOC: ED 03:04 → MS3 04:07
PROVIDERS: Student in an Organized Health Care Education/Training Program; Admitting Provider Internal Medicine; Emergency Provider Emergency Medicine; Visit Provider Family Medicine
DX: F10.239 Alcohol dependence with withdrawal, unspecified (principal); E11.9 Type 2 diabetes mellitus without complications; I10 Essential (primary) hypertension; Z91.14 Patient's other noncompliance with medication regimen; F32.9 Major depressive disorder, single episode, unspecified; F41.9 Anxiety disorder, unspecified
CPT/HCPCS: 80053; 80307; 82077; 82962; 84703; 85025; 93005; 99283; 99406

== ENCOUNTER 2021-01-25 19:44 | Emergency (ER) | payer OTHER, SELFPAY ==
[2021-01-25 19:45] VITALS: BP 140/89; PULSE 66; RESP 15; TEMP 36.9; O2SAT 96; BMI 45.3
--- NOTE | 2021-01-25 21:03 | RAD_ITS ---
INDICATION: SOB EXAMINATION/TECHNIQUE: X-RAY - XR Chest 1 View COMPARISON: None. FINDINGS: LINES/DEVICES: None. LUNGS: Consolidation involving the right mid lung does not obscure right heart border right hemidiaphragm; peripheral pneumonia. Lungs are otherwise clear. No pleural effusion. No pneumothorax. MEDIASTINUM AND CARDIOVASCULAR STRUCTURES: Cardiac silhouette not enlarged. Central airways and mediastinal contour are unremarkable. No evidence of lymphadenopathy. BONES AND SOFT TISSUES: No fracture or focal osseous lesion. RAD/Chest 1 View IMPRESSION: Right-sided pneumonia likely involving lower lobe, superior segment. Electronically Signed: Baldemar Brannon DO at 21:21 EDT Tel , Service support ,
[2021-01-25] MEDS: Ketorolac 15 MG/ML Vial IV (22:03)
[2021-01-25] MEDS: 0.9% Normal Saline 1,000 ML 1000 ML IV (22:03)
[2021-01-25 22:11] VITALS: PULSE 74; RESP 18; O2SAT 93
[2021-01-25 22:16] LABS: Absolute Lymphocyte Count 0.99 X10^3/uL (0.83-4.51); Absolute Neutrophil Count 4.6 X10^3/uL (2.0-7.7); Basophil# 0.02 X10^3/uL; Basophil% 0.3 % (0-1); Hematocrit 40.2 % (37-47); Lymphocyte # 0.99 X10^3/ul (0.83-4.51); Lymphocyte % 16.6 % (19-41); Mean Corp Hgb Conc 32.3 g/dL (32-36); Mean Corpuscular Hgb 27.5 pg (27.0-32.0); Mean Corpuscular Volume 85.2 fL (81-99); Mean Platelet Vol. 9.7 fl (6.2-12.0); Monocyte# 0.33 X10^3/uL; Monocyte% 5.5 % (0-10); NRBC Flagged by Analyzer 0 % (0-5); Neutrophil # 4.62 X10^3/uL (2.7-7.7); Neutrophil % 77.3 % (47-70); Platelet Count 190 K/mm3 (150-450); RBC Distribution Width CV 13.2 % (11.6-14.6); RBC Distribution Width SD 41.4 fl (35.1-43.9); Red Blood Count 4.72 M/mm3 (4.2-5.4)
[2021-01-25 22:32] LABS: Anion Gap 6 (5-15); BUN 17 mg/dL (7-18); BUN/Creat Ratio 20.8 RATIO (10-20); Calcium,Total 8.5 mg/dL (8.5-10.1); Chloride 104 mmol/L (98-107); Creatinine, Serum 0.82 mg/dL (0.55-1.02); EST Glomerular Filtration Rate 82 mL/min (>60); Est Glom Filt Rate - Afr Amer 100 mL/min (>60); Estimated Creatinine Clearance 68.82 ml/min; Glucose 296 mg/dL (74-106); Potassium 3.9 mmol/L (3.5-5.1); Sodium Level 135 mmol/L (136-145)
--- NOTE | 2021-01-25 23:03 | EX.ED.DYSGE1 ---
HPI History of Present Illness Chief Complaint: General Illness Narrative Narrative: Patient presenting for evaluation secondary to generalized illness. Patient has a underlying history of coronavirus. Patient actually states that this was preceded by a bacterial pneumonia which she was on antibiotics for, she never got better and then actually tested positive for coronavirus. She states that she is about 2 weeks out from her coronavirus diagnosis, and is still having generalized fatigue, body aches, cough, loose stools, and feelings of shortness of breath. No real exacerbating relieving factors. Patient does have an underlying history of hypertension and diabetes, she denies any history of lung disease. Review of systems otherwise negative. [facility] Medical History Alcohol use Anxiety Depression Diabetes Hypertension Home Medications azithromycin 250 mg PO DAILY 01/25/21 [History Last Taken Unknown] levofloxacin 750 mg PO DAILY #7 tab 01/25/21 [Rx Last Taken Unknown] prednisone 20 mg PO DAILY 01/25/21 [History Last Taken Unknown] tramadol [Ultram] 50 mg PO Q6H PRN 01/25/21 [History Last Taken Unknown] Allergy/AdvReac Type Severity Reaction Status Date / Time aspirin Allergy Shortness Verified 01/25/21 19:48 of breath hydrocodone bitartrate Allergy Other Verified 01/25/21 19:48 [From Vicodin] morphine Allergy Other Verified 01/25/21 19:48 sulfamethoxazole Allergy Itching Verified 01/25/21 19:48 [From Bactrim] trimethoprim [From Bactrim] Allergy Itching Verified 01/25/21 19:48 Social History Smoking Status: Never smoker substance use type: other details: Benzodiazepines ROS ROS ED Constitutional Constitutional ED: Reports chills and fever(s) ENT ENT ED: Denies rhinorrhea Cardiovascular Cardiovascular: Denies chest pain Respiratory/Chest Respiratory/Chest: Reports cough and dyspnea Gastrointestinal Gastrointestinal: Reports diarrhea Genitourinary Genitourinary ED: Denies dysuria or hematuria Musculoskeletal Musculoskeletal: Reports myalgias Integumentary Denies rash Neurologic Neurologic: Denies paresthesias or weakness Psychiatric Psychiatric: Denies depression Endocrine Endocrinology: Denies fatigue Allergic/Immunologic Allergic/Immunologic ED: Denies urticaria EXAM Physical Exam Const Vital Signs: 01/25/21 19:45 01/25/21 22:11 Temperature 98.5 F Temperature Source Temporal Pulse Rate 66 74 Respiratory Rate 15 18 Respiratory Effort Normal Respiratory Pattern Normal Blood Pressure 140/89 H Blood Pressure Mean 106 Pulse Ox 96 93 Oxygen Delivery Method Room Air Room Air Positive well nourished and well developed General Appearance ED: well developed and NAD HEENT Reports moist mucous membranes Negative for trauma or tenderness Eyes EOMs intact bilaterally Neck no lymphadenopathy, supple and no JVD Chest Wall inspection of chest normal Resp normal respiratory effort and clear to auscultation bilaterally Cardio regular rate, regular rhythm, no murmurs and peripheral pulses 2+ throughout GI normal to inspection, nondistended, normoactive bowel sounds, non-tender and no masses Palpation: soft Back/Spine normal to inspection Extremity normal to inspection General Extremety ED: Negative for tenderness Neuro oriented x3 and no sensory deficits noted Sensorium / Orientation: alert Motor Exam: strength 5/5 throughout Psych mental status grossly normal Skin no rashes or lesions noted MDM MDM MDM Narrative Medical decision making narrative: Patient presented secondary to continued symptoms of coronavirus. IV was established patient was given Toradol and fluids. CBC was unremarkable, there was some lymphocyte suppression. Chemistry shows normal renal function no signs of dehydration or electrolyte derangements. Chest x-ray by my personal review as well as radiology demonstrates a right sided infiltrate. Patient had improvement on repeat evaluation. Patient is capital PE RC negative, there is no indication for CT imaging of the chest. Patient at this point seems to have persistent pneumonia, potentially contributing to her symptoms. She reported that she was on antibiotics before but is unable to specifically tell me which antibiotics they were although she thinks that one of them started with a Z. Patient given the fact that she was on a previous course of azithromycin will be placed on Levaquin. I do not feel that she requires admission. Patient will follow up with primary care. Lab Data Labs: Laboratory Results - last 24 hr 01/25/21 01/25/21 22:08 22:08 WBC 6.0 RBC 4.72 Hgb 13.0 Hct 40.2 MCV 85.2 MCH 27.5 MCHC 32.3 RDW Std Deviation 41.4 RDW Coeff of Layne 13.2 Plt Count 190 MPV 9.7 Immature Gran % (Auto) 0.300 Neut % (Auto) 77.3 H Lymph % (Auto) 16.6 L [place] % (Auto) 5.5 Eos % (Auto) 0.0 Baso % (Auto) 0.3 Absolute Neuts (auto) 4.6 Absolute Lymphs (auto) 0.99 Nucleated RBC % 0 Sodium 135 L Potassium 3.9 Chloride 104 Carbon Dioxide 25.0 Anion Gap 6 BUN 17 Creatinine 0.82 Estim Creat Clear Calc 68.82 Est GFR (MDRD) Af Amer 100 Est GFR (MDRD) Non-Af 82 BUN/Creatinine Ratio 20.8 H Glucose 296 H Calcium 8.5 Radiography Diagnostic Testing: Radiology Impression Chest X-Ray 01/25/21 21:03 IMPRESSION: Right-sided pneumonia likely involving lower lobe, superior segment. Electronically Signed: Baldemar Brannon DO at 21:21 EDT Tel , Service support , Discharge Plan Triage Chief Complaint: General Illness ED Provider: Baldemar Luciano Dx/Rx/DC Orders Clinical Impression: Pneumonia Instructions: ED Pneumonia (Adult) Prescriptions: New levofloxacin 750 mg tablet 750 mg PO DAILY Qty: 7 RF: 0 No Action azithromycin 250 mg tablet 250 mg PO DAILY RF: 0 prednisone 20 mg tablet 20 mg PO DAILY RF: 0 tramadol [Ultram] 50 mg Tablet 50 mg PO Q6H PRN (Reason: Pain) RF: 0 Primary Care Provider: Care Physician,No Primary Referrals: Nicole Woody [NON-STAFF] - Care Physician,No Primary [Primary Care Provider] - Disposition Disposition: Home, Self Care
[2021-01-25] MEDS: levoFLOXacin 750 MG Tablet PO (23:13)
[2021-01-25 23:20] VITALS: PULSE 82; RESP 18; O2SAT 95
== END 2021-01-25 23:20 | disposition home or self-care (01) ==
PROVIDERS: Emergency Provider Emergency Medicine
DX: J18.9 Pneumonia, unspecified organism (principal); E11.9 Type 2 diabetes mellitus without complications; I10 Essential (primary) hypertension; Z79.899 Other long term (current) drug therapy
CPT/HCPCS: 71045; 80048; 85025; 96361; 96374; 99284; J7030

== ENCOUNTER 2021-01-28 18:29 | Emergency (ER) | payer OTHER, SELFPAY ==
[2021-01-28 18:30] VITALS: BP 129/81; PULSE 87; RESP 16; TEMP 36.7; O2SAT 94; BMI 43.7
--- NOTE | 2021-01-28 19:57 | EX.ED.DYSGE1 ---
HPI History of Present Illness Chief Complaint: Nausea/Vomiting Informant: patient and family Narrative Narrative: Patient is here primarily for nausea vomiting and inability to keep fluids down. She was diagnosed with a bacterial pneumonia but 2 weeks ago. She was treated with Levaquin and azithromycin. She has done with those antibiotics. She is actually not short of breath now. However, about 1 week ago she was also diagnosed with Covid. She is therefore not exactly sure when her Covid symptoms started because they overlapped with what does seem to be a bacterial pneumonia by history. Over the last 4 days she has had nausea vomiting. She states she really cannot keep fluids or food down. She has decreased urine output but no dysuria. She is not having abdominal pain. She does have diffuse myalgias and not as a large complaint. Nothing really helps her symptoms. She has no meds for nausea at home. Of note, patient also has high blood pressure and diabetes but has not been on benazepril or Metformin for quite some time. [facility] Medical History Alcohol use Anxiety Depression Diabetes Hypertension Home Medications azithromycin 250 mg PO DAILY 01/25/21 [History Last Taken Unknown] levofloxacin 750 mg PO DAILY #7 tab 01/25/21 [Rx Last Taken Unknown] prednisone 20 mg PO DAILY 01/25/21 [History Last Taken Unknown] tramadol [Ultram] 50 mg PO Q6H PRN 01/25/21 [History Last Taken Unknown] metformin 500 mg PO BID 01/28/21 [History Last Taken Unknown] metformin 500 mg PO BID 30 Days #60 tab 01/28/21 [Rx Last Taken Unknown] ondansetron 4 mg PO Q8H PRN #10 tab 01/28/21 [Rx Last Taken Unknown] promethazine 25 mg PO TID PRN #14 tab 01/28/21 [Rx Last Taken Unknown] Allergy/AdvReac Type Severity Reaction Status Date / Time aspirin Allergy Shortness Verified 01/28/21 18:34 of breath hydrocodone bitartrate Allergy Other Verified 01/28/21 18:34 [From Vicodin] morphine Allergy Other Verified 01/28/21 18:34 sulfamethoxazole Allergy Itching Verified 01/28/21 18:34 [From Bactrim] trimethoprim [From Bactrim] Allergy Itching Verified 01/28/21 18:34 Social History Smoking Status: Never smoker substance use type: other details: Benzodiazepines ROS ROS ED Constitutional Constitutional ED: Reports sweats; Denies chills or fever(s) Eyes Eyes: Denies change in vision ENT ENT ED: Denies ear pain, rhinorrhea or sore throat Cardiovascular Cardiovascular: Denies chest pain or palpitations Respiratory/Chest Respiratory/Chest: Reports cough; Denies dyspnea, dyspnea on exertion or sputum Gastrointestinal Gastrointestinal: Reports nausea and vomiting; Denies abdominal pain, constipation or diarrhea Genitourinary Genitourinary ED: Reports other Details: Decreased amount of urine. ; Denies dysuria Musculoskeletal Musculoskeletal: Reports arthralgias and myalgias Integumentary Denies rash Neurologic Neurologic: Reports headache(s); Denies weakness Endocrine Endocrinology: Denies polydipsia or polyuria Allergic/Immunologic Allergic/Immunologic ED: Denies urticaria EXAM Physical Exam Const Vital Signs: 01/28/21 18:30 01/28/21 20:24 Temperature 98.1 F Temperature Source Temporal Pulse Rate 87 76 Respiratory Rate 16 16 Blood Pressure 129/81 H 128/76 H Blood Pressure Mean 97 93 Pulse Ox 94 92 Oxygen Delivery Method Room Air Room Air Positive well nourished, well developed and obese General Appearance ED: well developed Nutritional Appearance: obese HEENT Reports dry mucous membranes Mouth ED: Yes dry mucous membranes Mouth: dry mucous membranes Eyes EOMs intact bilaterally General Eye ED: Negative for pale conjunctiva or scleral icterus Neck no JVD Chest Wall inspection of chest normal Resp normal respiratory effort and clear to auscultation bilaterally Resp Narrative: Spite her recent history, her lungs actually sound relatively clear. Auscultation: Negative for rales, rhonchi or wheezes Cardio regular rate, regular rhythm and no murmurs GI normal to inspection, nondistended, normoactive bowel sounds and non-tender Palpation: soft Back/Spine no CVA tenderness Extremity normal to inspection General Extremety ED: Negative for edema or tenderness General Extremity: Negative for edema Neuro oriented x3 Sensorium / Orientation: alert Psych mental status grossly normal Skin no rashes or lesions noted MDM MDM MDM Narrative Medical decision making narrative: Patient's blood work overall looks good. White count is not significantly low or high. Hemoglobin is good. Electrolytes are normal. Creatinine is normal despite her reportedly having trouble drinking at all. Glucose is a little bit elevated. However she is on prednisone and is not on her Metformin. Urine shows some ketones but there is no sign of diabetic ketoacidosis. X-ray is suspicious for slight worsening. However, I look at it is not a marked change. And the patient is not hypoxic. Her dyspnea and pulmonary symptoms are actually improving. I rechecked the patient. She states she feels good enough to go home. The nausea is much better. I will write her for Zofran and Phenergan. She will continue taking her other meds. I will write for the Metformin because she has been out of that for a while. Lab Data Attestation: I reviewed the patient's lab results. Labs: Laboratory Results - last 24 hr 01/28/21 01/28/21 01/28/21 20:20 20:20 22:05 WBC 6.9 RBC 4.89 Hgb 13.6 Hct 41.4 MCV 84.7 MCH 27.8 MCHC 32.9 RDW Std Deviation 40.5 RDW Coeff of Layne 13.1 Plt Count 243 MPV 9.7 Immature Gran % (Auto) 0.600 Neut % (Auto) 87.5 H Lymph % (Auto) 8.5 L [place] % (Auto) 3.2 Eos % (Auto) 0.1 Baso % (Auto) 0.1 Absolute Neuts (auto) 6.0 Absolute Lymphs (auto) 0.58 L Nucleated RBC % 0 Differential Comment SCANNED Sodium 139 Potassium 3.9 Chloride 102 Carbon Dioxide 28.0 Anion Gap 9 BUN 16 Creatinine 0.72 Estim Creat Clear Calc 78.38 Est GFR (MDRD) Af Amer 115 Est GFR (MDRD) Non-Af 95 BUN/Creatinine Ratio 22.2 H Glucose 203 H Calcium 8.7 Lipase 140 Urine Color YELLOW Urine Clarity Clear Urine pH 5.0 Ur Specific [place] 1.025 Urine Protein 30 H Urine Glucose (UA) Normal Urine Ketones 150 A* Urine Occult Blood Negative Urine Nitrite Negative Urine Bilirubin Negative Urine Urobilinogen Normal Ur Leukocyte Esterase Negative Urine RBC 0 SEEN Urine WBC 0 SEEN Ur Squamous Epith Cells 0 SEEN Urine Bacteria 0 SEEN Urine Mucus 0 SEEN Radiography Diagnostic Testing: Radiology Impression Chest X-Ray 01/28/21 20:32 IMPRESSION: Interval worsening of bilateral airspace opacities concerning for pneumonia. Electronically Signed: Anshul Morrow MD at 20:59 EDT Tel , Service support , Discharge Plan Triage Chief Complaint: Nausea/Vomiting ED Provider: Bk Marques Dx/Rx/DC Orders Clinical Impression: Pneumonia, COVID, Nausea & vomiting Instructions: ED Vomiting (Adult), Caring for Someone Who Has COVID-19 Prescriptions: New ondansetron 4 mg tablet,disintegrating 4 mg PO Q8H PRN (Reason: nausea and vomiting) Qty: 10 RF: 0 promethazine 25 mg tablet 25 mg PO TID PRN (Reason: nausea and vomiting) Qty: 14 RF: 0 metformin 500 mg tablet 500 mg PO BID 30 Days Qty: 60 RF: 0 No Action azithromycin 250 mg tablet 250 mg PO DAILY RF: 0 prednisone 20 mg tablet 20 mg PO DAILY RF: 0 tramadol [Ultram] 50 mg Tablet 50 mg PO Q6H PRN (Reason: Pain) RF: 0 levofloxacin 750 mg tablet 750 mg PO DAILY Qty: 7 RF: 0 metformin 500 mg tablet 500 mg PO BID RF: 0 Primary Care Provider: Care Physician,No Primary Referrals: Iban Rojas MD [STAFF PHYSICIAN] - 3-5 Days Care Physician,No Primary [Primary Care Provider] - Disposition Disposition: Home, Self Care
[2021-01-28] MEDS: 0.9% Normal Saline 1,000 ML 1000 ML IV (20:23)
[2021-01-28] MEDS: Ondansetron 4 MG/2 ML Vial IV (20:23)
[2021-01-28 20:24] VITALS: BP 128/76; PULSE 76; RESP 16; O2SAT 92
--- NOTE | 2021-01-28 20:32 | RAD_ITS ---
INDICATION: cough EXAMINATION/TECHNIQUE: X-RAY - XR Chest 1 View COMPARISON: 01/25/2021. FINDINGS: Interval worsening of bilateral airspace opacities. The cardiomediastinal silhouette is unremarkable. No pleural effusion or pneumothorax. No acute osseous abnormalities. RAD/Chest 1 View (Portable) IMPRESSION: Interval worsening of bilateral airspace opacities concerning for pneumonia. Electronically Signed: Anshul Morrow MD at 20:59 EDT Tel , Service support ,
[2021-01-28 20:42] LABS: Absolute Lymphocyte Count 0.58 X10^3/uL (0.83-4.51); Basophil# 0.01 X10^3/uL; Basophil% 0.1 % (0-1); Eosinophil# 0.01 X10^3/uL; Eosinophils% 0.1 % (0-5); Hematocrit 41.4 % (37-47); Hemoglobin 13.6 g/dL (12.0-15.0); Lymphocyte # 0.58 X10^3/ul (0.83-4.51); Lymphocyte % 8.5 % (19-41); Mean Corp Hgb Conc 32.9 g/dL (32-36); Mean Corpuscular Hgb 27.8 pg (27.0-32.0); Mean Corpuscular Volume 84.7 fL (81-99); Mean Platelet Vol. 9.7 fl (6.2-12.0); Monocyte# 0.22 X10^3/uL; Monocyte% 3.2 % (0-10); NRBC Flagged by Analyzer 0 % (0-5); Neutrophil % 87.5 % (47-70); POSITIVE DIFFERENTIAL YES; Platelet Count 243 K/mm3 (150-450); RBC Distribution Width CV 13.1 % (11.6-14.6); RBC Distribution Width SD 40.5 fl (35.1-43.9); Red Blood Count 4.89 M/mm3 (4.2-5.4); White Blood Count 6.9 K/mm3 (4.4-11.0)
[2021-01-28 20:45] LABS: Differential Indicated SCAN CRITERIA MET
[2021-01-28 20:57] LABS: Anion Gap 9 (5-15); BUN 16 mg/dL (7-18); BUN/Creat Ratio 22.2 RATIO (10-20); Calcium,Total 8.7 mg/dL (8.5-10.1); Chloride 102 mmol/L (98-107); Creatinine, Serum 0.72 mg/dL (0.55-1.02); EST Glomerular Filtration Rate 95 mL/min (>60); Est Glom Filt Rate - Afr Amer 115 mL/min (>60); Estimated Creatinine Clearance 78.38 ml/min; Glucose 203 mg/dL (74-106); Lipase 140 U/L (73-393); Potassium 3.9 mmol/L (3.5-5.1); Sodium Level 139 mmol/L (136-145)
[2021-01-28 21:19] LABS: Differential Comment SCANNED
[2021-01-28] MEDS: 0.9% Normal Saline 1,000 ML 999 ML IV (21:52)
[2021-01-28 22:12] LABS: Bacteria 0 SEEN /hpf (None Seen); Mucous, Urine 0 SEEN /hpf (<or=2+); Red Blood Cells-Urine 0 SEEN /hpf (0-5); Squamous Epithelial Cells - UA 0 SEEN /hpf (5-10); White Blood Cells 0 SEEN /hpf (0-5)
[2021-01-28 22:41] LABS: Glucose, Dipstick Normal (Normal); Leukocyte Esterase-Dipstick Negative /ul (Negative); Nitrite-Dipstick Negative (Negative); Occult Blood-Urine Negative /ul (Negative); Protein-Dipstick 30 mg/dl (Negative); Specific Gravity, Urine 1.025 (1.002-1.030); Urine Bilirubin Dipstick Negative (Negative); Urine Urobilinogen Normal (Normal)
[2021-01-28 22:49] LABS: Color, Urine YELLOW (Yellow); Urine Clarity Clear (Clear)
[2021-01-28 22:56] LABS: Ketone-Dipstick 150 mg/dl (Negative)
[2021-01-28 23:30] VITALS: BP 141/100; PULSE 89; RESP 18; O2SAT 92
== END 2021-01-29 00:23 | disposition home or self-care (01) ==
PROVIDERS: Emergency Provider Emergency Medicine
DX: U07.1 COVID-19 (principal); J12.82 Pneumonia due to coronavirus disease 2019; R11.2 Nausea with vomiting, unspecified; F41.9 Anxiety disorder, unspecified; F32.9 Major depressive disorder, single episode, unspecified; E11.9 Type 2 diabetes mellitus without complications; I10 Essential (primary) hypertension; E66.9 Obesity, unspecified; Z79.52 Long term (current) use of systemic steroids; Z79.899 Other long term (current) drug therapy
CPT/HCPCS: 71045; 80048; 81001; 83690; 85025; 96361; 96374; 99283; J7030; A4216; J2405

== ENCOUNTER 2021-04-03 10:41 | Emergency (ER) | payer OTHER, SELFPAY ==
[2021-04-03 10:44] VITALS: BP 200/96; PULSE 75; RESP 18; TEMP 36.1; O2SAT 98; BMI 41.5
--- NOTE | 2021-04-03 11:23 | EKG12_ITS ---
Test Reason : CP Blood Pressure : / mmHG Vent. Rate : 066 BPM Atrial Rate : 066 BPM P-R Int : 156 ms QRS Dur : 090 ms QT Int : 410 ms P-R-T Axes : 049 -04 036 degrees QTc Int : 429 ms Normal sinus rhythm with sinus arrhythmia Confirmed by SHANNON LAO, MATTHIEU ([id number]), state editor [address] ([id number]) on 04/04/2021 1:13:31 PM Referred By: TORRES Confirmed By:MATTHIEU ORTEGA MD
--- NOTE | 2021-04-03 11:23 | CT_ITS ---
STUDY: CT BRAIN WITHOUT CONTRAST REASON FOR EXAM: Female, 40 years old. Headache RADIATION DOSAGE (If Supplied By Facility): CTDIvol = ( 47.06 ) mGy, DLP = ( 784.45 ) mGycm TECHNIQUE: Transaxial CT imaging of the brain was performed without administration of intravenous contrast material. Individualized dose optimization techniques were used for this CT. COMPARISON: Comparison is made with prior study dated 06/23/2019. FINDINGS: Normal soft tissue structures. Normal calvarium. Normal size ventricles and extra-axial spaces for the patient''s age. Normal white matter tracts of the cerebral hemispheres. Normal basal ganglia and thalami. Normal brainstem. Normal cerebellum. There is no intracranial hemorrhage. There are no findings of an acute ischemic infarction. Normal visualized paranasal sinuses. CT/Brain/Head without Contrast IMPRESSION: Normal unenhanced CT scan of the brain. Electronically Signed: Frank Hernandez MD at 13:21 EST , Service support ,
--- NOTE | 2021-04-03 11:23 | RAD_ITS ---
STUDY: X-RAY CHEST REASON FOR EXAM: Female, 40 years old. Chest pain TECHNIQUE: Single AP portable view of the chest. COMPARISON: Comparison is made with prior study of 01/28/2021. FINDINGS: EKG electrodes are seen. The previously seen bilateral pulmonary infiltrates have cleared. 8.6 mm nodular density in the medial left midlung. This most likely represents a small granuloma. There is no demonstrated pleural abnormality. Normal size heart. Normal mediastinum and lydia. Normal visualized pulmonary arteries. Normal visualized aortic arch and descending thoracic aorta. Normal visualized thoracic spine. Normal visualized ribs, clavicles, and shoulders. There is no demonstrated abnormality of the visualized soft tissue structures of the upper abdomen. RAD/Chest 1 View (Portable) IMPRESSION: The previously seen infiltrates have cleared. 8.6 mm well-defined nodule in the medial midportion of the left lung most likely representing a granuloma. Electronically Signed: Frank Hernandez MD at 12:22 EST , Service support ,
--- NOTE | 2021-04-03 11:38 | ED.VIS.CHEST ---
HPI History of Present Illness Chief Complaint: Chest Pain Narrative Narrative: Patient presents with multiple somatic complaints since Friday, 2 days ago. States that she has had a headache that developed, and she has had chest pain that is been intermittent. She does not feel well in general. She states her left arm and leg felt numb. Of note, she has past medical history of hypertension and used to take lisinopril/hydrochlorothiazide as a combination medication but has been out for over a year and has not seen a primary care physician. Sometimes her chest pain and headache is better when lying still. No fevers or chills. No true exacerbating or alleviating factors. [facility] Medical History Alcohol use Anxiety Depression Diabetes Hypertension Home Medications azithromycin 250 mg PO DAILY 01/25/21 [History Last Taken Unknown] levofloxacin 750 mg PO DAILY #7 tab 01/25/21 [Rx Last Taken Unknown] prednisone 20 mg PO DAILY 01/25/21 [History Last Taken Unknown] tramadol [Ultram] 50 mg PO Q6H PRN 01/25/21 [History Last Taken Unknown] metformin 500 mg PO BID 01/28/21 [History Last Taken Unknown] metformin 500 mg PO BID 30 Days #60 tab 01/28/21 [Rx Last Taken Unknown] ondansetron 4 mg PO Q8H PRN #10 tab 01/28/21 [Rx Last Taken Unknown] promethazine 25 mg PO TID PRN #14 tab 01/28/21 [Rx Last Taken Unknown] lisinopril-hydrochlorothiazide 1 tab PO DAILY #14 tab 04/03/21 [Rx Last Taken Unknown] Allergy/AdvReac Type Severity Reaction Status Date / Time aspirin Allergy Shortness Verified 04/03/21 10:43 of breath hydrocodone bitartrate Allergy Other Verified 04/03/21 10:43 [From Vicodin] morphine Allergy Other Verified 04/03/21 10:43 sulfamethoxazole Allergy Itching Verified 04/03/21 10:43 [From Bactrim] trimethoprim [From Bactrim] Allergy Itching Verified 04/03/21 10:43 Social History Smoking Status: Never smoker substance use type: other details: Benzodiazepines ROS ROS ED ROS Narrative Constitutional: No fever, no chills. HEENT: No sore throat. No neck pain. No loss of vision. No rhinorrhea. Cardiovascular: Positive chest pain. No palpitations. No pedal edema. Respiratory: No cough, no shortness of breath. Abdominal: No abdominal pain. No nausea. No vomiting. Genitourinary: No dysuria. No hematuria. Musculoskeletal: No myalgias. No arthralgias. Neurologic: Positive headaches. No dizziness. No lightheadedness. Paresthesias of left side. Skin: No rash. No change in color. Psychiatric: No depression. No anxiety. EXAM Physical Exam Narrative Exam Narrative: Afebrile. Vital signs noted. HEENT: Normocephalic. Atraumatic. PERRL, EOMI. Neck soft and supple. No point tenderness or step off. Cardiovascular: Regular rate and rhythm. No murmurs, rubs, or gallops appreciated. Respiratory: No tachypnea. Lungs clear to auscultation bilaterally. Gastrointestinal: Abdomen soft, nontender, with normoactive bowel sounds. No rebound or guarding. Neurological: Awake. Alert. Nonfocal, nonlateralizing. NIH stroke scale is 0. Skin: No rash. Normal color. No pallor. Musculoskeletal: No pedal edema. Full range of motion extremities. Const Vital Signs: 04/03/21 10:44 04/03/21 11:42 04/03/21 14:24 Temperature 97 F L Temperature Source Temporal Pulse Rate 75 77 Respiratory Rate 18 18 Blood Pressure 200/96 H 172/97 H Blood Pressure Mean 130 122 Pulse Ox 98 100 Oxygen Delivery Method Room Air Room Air Room Air MDM MDM MDM Narrative Medical decision making narrative: Comprehensive work-up was pursued. Her EKG demonstrates normal sinus rhythm at 66 bpm with a sinus arrhythmia but no acute ST changes. CBC is grossly normal, normal white count, stable hemoglobin of 13.7. Electrolyte panel is also grossly unremarkable. Serum is negative. Initial high-sensitivity troponin is normal at 6. CT of the brain shows no acute process. Chest x-ray shows that previous infiltrates have cleared. There is a granuloma on the left side. Patient was made aware of this and will have this followed up by her primary care physician for repeat chest x-ray in 6 months. Her second troponin is negative at 7, giving a negative delta troponin. At this point in time, I do feel that her symptoms may be related to elevated blood pressure. Repeat blood pressure shows a systolic of 172, down from 200. I will restart her on her hydrochlorothiazide/lisinopril at the lowest dose of 12.5/10. I wrote her prescription for 2 weeks. She was referred to her primary care provider. Disposition is discharged home in stable condition. Return instructions were reviewed. Lab Data Attestation: I reviewed the patient's lab results. Labs: Laboratory Results - last 24 hr 04/03/21 04/03/21 04/03/21 11:50 11:50 11:50 WBC 6.6 RBC 5.02 Hgb 13.7 Hct 41.8 MCV 83.3 MCH 27.3 MCHC 32.8 RDW Std Deviation 41.6 RDW Coeff of Layne 13.9 Plt Count 233 MPV 9.0 Immature Gran % (Auto) 0.500 Neut % (Auto) 67.8 Lymph % (Auto) 21.5 [place] % (Auto) 5.9 Eos % (Auto) 3.5 Baso % (Auto) 0.8 Absolute Neuts (auto) 4.5 Absolute Lymphs (auto) 1.42 Nucleated RBC % 0 Sodium 139 Potassium 3.8 Chloride 104 Carbon Dioxide 28.0 Anion Gap 7 BUN 9 Creatinine 0.70 Estim Creat Clear Calc 80.62 Est GFR (MDRD) Af Amer 119 Est GFR (MDRD) Non-Af 99 BUN/Creatinine Ratio 12.9 Glucose 202 H Calcium 8.8 Troponin I High Sens 6 Serum , Qual NEGATIVE 04/03/21 14:20 WBC RBC Hgb Hct MCV MCH MCHC RDW Std Deviation RDW Coeff of Layne Plt Count MPV Immature Gran % (Auto) Neut % (Auto) Lymph % (Auto) [place] % (Auto) Eos % (Auto) Baso % (Auto) Absolute Neuts (auto) Absolute Lymphs (auto) Nucleated RBC % Sodium Potassium Chloride Carbon Dioxide Anion Gap BUN Creatinine Estim Creat Clear Calc Est GFR (MDRD) Af Amer Est GFR (MDRD) Non-Af BUN/Creatinine Ratio Glucose Calcium Troponin I High Sens 7 Serum , Qual Radiography Diagnostic Testing: Clinical Impression(s) from Imaging Studies Brain CT 04/03/21 11:23 IMPRESSION: Normal unenhanced CT scan of the brain. Electronically Signed: Frank Hernandez MD at 13:21 EST , Service support , Chest X-Ray 04/03/21 11:23 IMPRESSION: The previously seen infiltrates have cleared. 8.6 mm well-defined nodule in the medial midportion of the left lung most likely representing a granuloma. Electronically Signed: Frank Hernandez MD at 12:22 EST , Service support , Discharge Plan Triage Chief Complaint: Chest Pain ED Provider: Germán Denson Dx/Rx/DC Orders Clinical Impression: Headache, Hypertension, Chest pain Instructions: ED Chest Pain, Uncertain Cause, ED High Blood Pressure Hypertension, ED Pain, Acute, Uncertain Cause Prescriptions: New lisinopril-hydrochlorothiazide 10-12.5 mg tablet 1 tab PO DAILY Qty: 14 RF: 0 No Action azithromycin 250 mg tablet 250 mg PO DAILY RF: 0 prednisone 20 mg tablet 20 mg PO DAILY RF: 0 tramadol [Ultram] 50 mg Tablet 50 mg PO Q6H PRN (Reason: Pain) RF: 0 levofloxacin 750 mg tablet 750 mg PO DAILY Qty: 7 RF: 0 metformin 500 mg tablet 500 mg PO BID RF: 0 ondansetron 4 mg tablet,disintegrating 4 mg PO Q8H PRN (Reason: nausea and vomiting) Qty: 10 RF: 0 promethazine 25 mg tablet 25 mg PO TID PRN (Reason: nausea and vomiting) Qty: 14 RF: 0 metformin 500 mg tablet 500 mg PO BID 30 Days Qty: 60 RF: 0 Primary Care Provider: Care Physician,No Primary Referrals: Care Physician,No Primary [Primary Care Provider] - Disposition Disposition: Home, Self Care
[2021-04-03 12:01] LABS: Absolute Lymphocyte Count 1.42 X10^3/uL (0.83-4.51); Absolute Neutrophil Count 4.5 X10^3/uL (2.0-7.7); Basophil# 0.05 X10^3/uL; Basophil% 0.8 % (0-1); Eosinophil# 0.23 X10^3/uL; Eosinophils% 3.5 % (0-5); Hematocrit 41.8 % (37-47); Hemoglobin 13.7 g/dL (12.0-15.0); Lymphocyte # 1.42 X10^3/ul (0.83-4.51); Lymphocyte % 21.5 % (19-41); Mean Corp Hgb Conc 32.8 g/dL (32-36); Mean Corpuscular Hgb 27.3 pg (27.0-32.0); Mean Corpuscular Volume 83.3 fL (81-99); Monocyte# 0.39 X10^3/uL; Monocyte% 5.9 % (0-10); NRBC Flagged by Analyzer 0 % (0-5); Neutrophil % 67.8 % (47-70); Platelet Count 233 K/mm3 (150-450); RBC Distribution Width CV 13.9 % (11.6-14.6); RBC Distribution Width SD 41.6 fl (35.1-43.9); Red Blood Count 5.02 M/mm3 (4.2-5.4); White Blood Count 6.6 K/mm3 (4.4-11.0)
[2021-04-03 12:09] LABS: Internal QC Validated? YES +Cl - CLEAR BKGD; Pregnancy, Serum, hCG Quali. NEGATIVE Negative
[2021-04-03 12:18] LABS: Anion Gap 7 (5-15); BUN 9 mg/dL (7-18); BUN/Creat Ratio 12.9 RATIO (10-20); Calcium,Total 8.8 mg/dL (8.5-10.1); Chloride 104 mmol/L (98-107); EST Glomerular Filtration Rate 99 mL/min (>60); Est Glom Filt Rate - Afr Amer 119 mL/min (>60); Estimated Creatinine Clearance 80.62 ml/min; Glucose 202 mg/dL (74-106); Potassium 3.8 mmol/L (3.5-5.1); Sodium Level 139 mmol/L (136-145); Troponin-I HS 6 pg/mL (3.0-54.0)
[2021-04-03 14:24] VITALS: BP 172/97; PULSE 77; RESP 18; O2SAT 100
[2021-04-03 14:48] LABS: Troponin-I HS 7 pg/mL (3.0-54.0)
[2021-04-03 15:31] VITALS: BP 171/101; PULSE 74; RESP 16; O2SAT 97
== END 2021-04-03 15:31 | disposition home or self-care (01) ==
PROVIDERS: Emergency Provider Emergency Medicine
DX: R07.9 Chest pain, unspecified (principal); R51.9 Headache, unspecified; I10 Essential (primary) hypertension; E11.9 Type 2 diabetes mellitus without complications; Z79.899 Other long term (current) drug therapy
CPT/HCPCS: 70450; 71045; 80048; 84484; 84703; 85025; 93005; 99284; A4216

== ENCOUNTER 2022-06-10 16:54 | Emergency (ER) | payer OTHER, SELFPAY ==
[2022-06-10 16:55] VITALS: BP 135/101; PULSE 89; RESP 18; TEMP 36; O2SAT 96; BMI 40.6
--- NOTE | 2022-06-10 18:48 | EX.ED.DYSGE1 ---
HPI History of Present Illness Chief Complaint: Sore Throat Narrative Narrative: 42-year-old female presenting with sore throat, nausea, vomiting, diarrhea. She states she has had a fever as high as 104 Fahrenheit on . Her fevers have been lower since then. She states he is a diabetic but forgot her glucometer at work on so she is not been able to check her sugars. Patient states has not been able to hold down any food or fluids since . She states every time she tries to drink or eat something comes right back up. She noticed that she is developed some blisters in the lower lip on the inside. These are mildly painful. [facility] Medical History Alcohol use Anxiety Depression Diabetes Hypertension Home Medications azithromycin 250 mg tablet 250 mg PO DAILY 01/25/21 [History Last Taken Unknown] levofloxacin 750 mg tablet 750 mg PO DAILY #7 tabs 01/25/21 [Rx Last Taken Unknown] prednisone 20 mg tablet 20 mg PO DAILY 01/25/21 [History Last Taken Unknown] tramadol 50 mg tablet (Ultram) 50 mg PO Q6H PRN Pain 01/25/21 [History Last Taken Unknown] metformin 500 mg tablet 500 mg PO BID 01/28/21 [History Last Taken Unknown] metformin 500 mg tablet 500 mg PO BID 30 days #60 tabs 01/28/21 [Rx Last Taken Unknown] ondansetron 4 mg disintegrating tablet 4 mg PO Q8H PRN nausea and vomiting #10 tabs 01/28/21 [Rx Last Taken Unknown] promethazine 25 mg tablet 25 mg PO TID PRN nausea and vomiting #14 tabs 01/28/21 [Rx Last Taken Unknown] lisinopril 10 mg-hydrochlorothiazide 12.5 mg tablet 1 tab PO DAILY #14 tabs 04/03/21 [Rx Last Taken Unknown] cephalexin 500 mg capsule 500 mg PO Q12 #14 CAPSULES 06/10/22 [Rx Last Taken Unknown] ondansetron 4 mg disintegrating tablet 4 mg PO Q8H PRN PRN Nausea #14 tabs 06/10/22 [Rx Last Taken Unknown] Allergy/AdvReac Type Severity Reaction Status Date / Time aspirin Allergy Shortness Verified 06/10/22 16:55 of breath hydrocodone bitartrate Allergy Other Verified 06/10/22 16:55 [From Vicodin] morphine Allergy Other Verified 06/10/22 16:55 sulfamethoxazole Allergy Itching Verified 06/10/22 16:55 [From Bactrim] trimethoprim [From Bactrim] Allergy Itching Verified 06/10/22 16:55 Social History Smoking Status: Never smoker substance use type: other details: Benzodiazepines ROS ROS ED Constitutional Constitutional ED: Reports chills and fever(s) Eyes Eyes: Denies change in vision or diplopia ENT ENT ED: Reports rhinorrhea and sore throat Cardiovascular Cardiovascular: Denies chest pain or palpitations Respiratory/Chest Respiratory/Chest: Denies cough or dyspnea Gastrointestinal Gastrointestinal: Reports nausea and vomiting Genitourinary Genitourinary ED: Reports dysuria Musculoskeletal Musculoskeletal: Denies arthralgias or back pain Integumentary Denies abscess Neurologic Neurologic: Reports headache(s); Denies paresthesias or weakness Psychiatric Psychiatric: Denies anxiety or depression EXAM Physical Exam Const Vital Signs: 06/10/22 16:55 Temperature 96.8 F L Temperature Source Temporal Pulse Rate 89 Respiratory Rate 18 Blood Pressure 135/101 H Blood Pressure Mean 112 Pulse Ox 96 Oxygen Delivery Method Room Air Positive well nourished General Appearance ED: NAD; Negative for pallor HEENT Reports moist mucous membranes Negative for trauma Tympanic Membrane ED: Yes TM's normal bilaterally Mouth ED: Yes tongue normal, Yes salivary gland normal, No drooling, Yes lip abnormal and No trismus Mouth: tongue normal, salivary gland normal, No drooling, lip abnormal, No thrush and No trismus Throat: uvula midline and posterior oropharynx abnormal Positive for erythema and exudates; Negative for peritonsillar mass Eyes PERRL and EOMs intact bilaterally Neck no lymphadenopathy Resp normal respiratory effort and clear to auscultation bilaterally Cardio regular rate and regular rhythm GI normal to inspection, nondistended, normoactive bowel sounds Neuro oriented x3 and CN's II-XII intact bilaterally Sensorium / Orientation: alert Motor Exam: strength 5/5 throughout and general weakness Psych mental status grossly normal Skin General Skin Exam: Negative for jaundice or pallor MDM MDM MDM Narrative Medical decision making narrative: Patient presenting with fever, chills, nausea, vomiting since . She reports she has not been able to hold down any food or fluids since that time. She does not have abdominal pain but is complaining of dysuria. She also reports decreased urine output. Patient has not been tested for anything prior to this. Since it has been 5 days I do not believe viral testing is indicated for COVID, flu. On examination she does have tonsillar erythema and some exudates. She also has small blisters on inner lower lip which are minimally tender. Differential diagnosis includes but is not limited to COVID-19, influenza, RSV, UTI, dehydration, pancreatitis, hyperglycemia. IV was established. Patient given Zofran for nausea and a liter of normal saline. CBC obtained to assess white blood cell count, hemoglobin, differential. White blood cell count 7.5. Hemoglobin stable 13.9, platelets normal at 213. CMP obtained to assess liver function as patient has history of EtOH use. Also to assess for renal function, electrolytes, glucose, anion gap. LFTs are normal. Renal function and electrolytes all within normal limits. Glucose is 274 without anion gap. Rapid strep was obtained due to tonsillar exudates and this is negative. Urine test to assess for and this is normal. Urinalysis obtained to assess for UTI as patient is symptomatic. This is consistent with UTI. Patient was given Keflex orally here in the emergency room. She is able to tolerate this and her nausea is much improved. All her medications were filled via meds to beds. Since patient is improved and her work-up ultimately showed a UTI I think she can be treated as an outpatient. It is possible she could have had something viral at the onset. Impression: 1. Nausea/vomiting 2. Bladder infection 3. Hyperglycemia Lab Data Labs: Laboratory Results - last 24 hr 06/10/22 06/10/22 06/10/22 19:17 19:17 19:17 WBC 7.5 RBC 5.18 Hgb 13.9 Hct 43.2 MCV 83.4 MCH 26.8 L MCHC 32.2 RDW Std Deviation 41.0 RDW Coeff of [place] 13.3 Plt Count 213 MPV 9.7 Immature Gran % (Auto) 0.400 Neut % (Auto) 73.0 H Lymph % (Auto) 18.9 L [place] % (Auto) 7.0 Eos % (Auto) 0.3 Baso % (Auto) 0.4 Absolute Neuts (auto) 5.5 Absolute Lymphs (auto) 1.41 Nucleated RBC % 0 Sodium 136 Potassium 3.7 Chloride 102 Carbon Dioxide 27.0 Anion Gap 7 BUN 12 Creatinine 0.88 Estim Creat Clear Calc 62.84 Est GFR (MDRD) Af Amer 91 Est GFR (MDRD) Non-Af 75 BUN/Creatinine Ratio 13.7 Glucose 274 H Calcium 9.0 Total Bilirubin 0.60 AST 15 ALT 41 Alkaline Phosphatase 75 Total Protein 7.9 Albumin 3.5 Globulin 4.4 H Albumin/Globulin Ratio 0.8 L Lipase 106 110 Urine Color Urine Clarity Urine pH Ur Specific [place] Urine Protein Urine Glucose (UA) Urine Ketones Urine Occult Blood Urine Nitrite Urine Bilirubin Urine Urobilinogen Ur Leukocyte Esterase Urine RBC Urine WBC Ur Squamous Epith Cells Amorphous Sediment Urine Bacteria Urine Mucus Urine Test 06/10/22 06/10/22 19:22 19:22 WBC RBC Hgb Hct MCV MCH MCHC RDW Std Deviation RDW Coeff of [place] Plt Count MPV Immature Gran % (Auto) Neut % (Auto) Lymph % (Auto) [place] % (Auto) Eos % (Auto) Baso % (Auto) Absolute Neuts (auto) Absolute Lymphs (auto) Nucleated RBC % Sodium Potassium Chloride Carbon Dioxide Anion Gap BUN Creatinine Estim Creat Clear Calc Est GFR (MDRD) Af Amer Est GFR (MDRD) Non-Af BUN/Creatinine Ratio Glucose Calcium Total Bilirubin AST ALT Alkaline Phosphatase Total Protein Albumin Globulin Albumin/Globulin Ratio Lipase Urine Color Yellow Urine Clarity Cloudy Urine pH 6.5 Ur Specific [place] 1.020 Urine Protein 100 H Urine Glucose (UA) 50 H Urine Ketones 50 H Urine Occult Blood 10 H Urine Nitrite Positive H Urine Bilirubin 1 H Urine Urobilinogen 4 H Ur Leukocyte Esterase 100 H Urine RBC 0 SEEN Urine WBC 5-10 SEEN Ur Squamous Epith Cells 0-5 SEEN Amorphous Sediment 2+ Urine Bacteria 1+ Urine Mucus 0 SEEN Urine Test Negative Discharge Plan Triage Chief Complaint: Sore Throat Other Complaint: Headache Nausea/Vomiting/Diarrhea Wound ED Provider: Syed Biswas Dx/Rx/DC Orders Instructions: ED Diabetic Hyperglycemia, ED Cystitis Female Adult, ED Vomiting (Adult) Prescriptions: New ondansetron 4 mg tablet,disintegrating 4 mg PO Q8H PRN PRN (Reason: Nausea) Qty: 14 0RF cephalexin 500 mg capsule 500 mg PO Q12 Qty: 14 0RF No Action azithromycin 250 mg tablet 250 mg PO DAILY Label Comments: TAKE 1 TABLET BY MOUTH ONCE DAILY FOR 4 DAYS prednisone 20 mg tablet 20 mg PO DAILY Label Comments: TAKE 1 TABLET BY MOUTH TWICE DAILY FOR 3 DAYS AND THEN 1 ONCE DAILY FOR 3 DAYS tramadol [Ultram] 50 mg Tablet 50 mg PO Q6H PRN (Reason: Pain) levofloxacin 750 mg tablet 750 mg PO DAILY Qty: 7 0RF metformin 500 mg tablet 500 mg PO BID Label Comments: TAKE 2 TABLETS BY MOUTH ONCE DAILY ondansetron 4 mg tablet,disintegrating 4 mg PO Q8H PRN (Reason: nausea and vomiting) Qty: 10 0RF promethazine 25 mg tablet 25 mg PO TID PRN (Reason: nausea and vomiting) Qty: 14 0RF metformin 500 mg tablet 500 mg PO BID 30 Days Qty: 60 0RF lisinopril-hydrochlorothiazide 10-12.5 mg tablet 1 tab PO DAILY Qty: 14 0RF Primary Care Provider: Zane Dutton Referrals: Zane Dutton MD [Primary Care Provider] - Disposition Disposition: Home, Self Care
[2022-06-10] MEDS: Ondansetron 4 MG/2 ML Vial IV (19:18)
[2022-06-10] MEDS: 0.9% Normal Saline 1,000 ML 1000 ML IV (19:18)
[2022-06-10 19:37] LABS: Internal QC Validated? YES +Cl - CLEAR BKGD
[2022-06-10 19:38] LABS: Pregnancy, Urine Negative Negative
[2022-06-10 19:51] LABS: ALB/GLOB Ratio 0.8 RATIO (0.9-2.4); AST(SGOT) 15 U/L (15-37); Alanine Aminotransfer ALT/SGPT 41 U/L (13-56); Albumin, Serum 3.5 g/dL (3.2-5.0); Alkaline Phosphatase 75 U/L (45-117); Anion Gap 7 (5-15); BUN 12 mg/dL (7-18); BUN/Creat Ratio 13.7 RATIO (10-20); Chloride 102 mmol/L (98-107); Creatinine, Serum 0.88 mg/dL (0.55-1.02); EST Glomerular Filtration Rate 75 mL/min (>60); Est Glom Filt Rate - Afr Amer 91 mL/min (>60); Estimated Creatinine Clearance 62.84 ml/min; Globulin 4.4 g/dL (2.2-4.2); Glucose 274 mg/dL (74-106); Lipase 106 U/L (73-393); Potassium 3.7 mmol/L (3.5-5.1); Protein, Total 7.9 g/dL (6.4-8.2); Sodium Level 136 mmol/L (136-145)
[2022-06-10 20:03] LABS: Color, Urine Yellow (Yellow); Glucose, Dipstick 50 mg/dl (Normal); Ketone-Dipstick 50 mg/dl (Negative); Leukocyte Esterase-Dipstick 100 /ul (Negative); Mucous, Urine 0 SEEN /hpf (<or=2+); Nitrite-Dipstick Positive (Negative); Occult Blood-Urine 10 /ul (Negative); Protein-Dipstick 100 mg/dl (Negative); Red Blood Cells-Urine 0 SEEN /hpf (0-5); Urine Clarity Cloudy (Clear); Urine Urobilinogen 4 mg/dl (Normal); Urine pH 6.5 (5.0 - 8.0)
[2022-06-10 20:09] LABS: Urine Bilirubin Dipstick 1 mg/dL (Negative)
[2022-06-10 20:10] LABS: Amorphous Sediment 2+; Squamous Epithelial Cells - UA 0-5 SEEN /hpf (5-10); White Blood Cells 5-10 SEEN /hpf (0-5)
[2022-06-10 20:11] LABS: Bacteria 1+ /hpf (None Seen)
[2022-06-10 20:23] LABS: Absolute Lymphocyte Count 1.41 X10^3/uL (0.83-4.51); Absolute Neutrophil Count 5.5 X10^3/uL (2.0-7.7); Basophil# 0.03 X10^3/uL; Basophil% 0.4 % (0-1); Eosinophil# 0.02 X10^3/uL; Eosinophils% 0.3 % (0-5); Hematocrit 43.2 % (37-47); Hemoglobin 13.9 g/dL (12.0-15.0); Lymphocyte # 1.41 X10^3/ul (0.83-4.51); Lymphocyte % 18.9 % (19-41); Mean Corp Hgb Conc 32.2 g/dL (32-36); Mean Corpuscular Hgb 26.8 pg (27.0-32.0); Mean Corpuscular Volume 83.4 fL (81-99); Mean Platelet Vol. 9.7 fl (6.2-12.0); Monocyte# 0.52 X10^3/uL; NRBC Flagged by Analyzer 0 % (0-5); Neutrophil # 5.47 X10^3/uL (2.7-7.7); Platelet Count 213 K/mm3 (150-450); RBC Distribution Width CV 13.3 % (11.6-14.6); Red Blood Count 5.18 M/mm3 (4.2-5.4); White Blood Count 7.5 K/mm3 (4.4-11.0)
[2022-06-10 20:37] LABS: Lipase 110 U/L (73-393)
[2022-06-10] MEDS: Cephalexin 250 MG Capsule 500 MG PO (21:47)
[2022-06-10 22:10] VITALS: BP 138/97; PULSE 97; RESP 18; O2SAT 100
== END 2022-06-10 22:48 | disposition home or self-care (01) ==
PROVIDERS: Emergency Provider Student in an Organized Health Care Education/Training Program; PCP Family Medicine; Visit Provider Student in an Organized Health Care Education/Training Program
DX: N30.90 Cystitis, unspecified without hematuria (principal); E11.65 Type 2 diabetes mellitus with hyperglycemia; R19.7 Diarrhea, unspecified; R11.2 Nausea with vomiting, unspecified; I10 Essential (primary) hypertension; R50.9 Fever, unspecified; R30.0 Dysuria
CPT/HCPCS: 80048; 80053; 81001; 81025; 83690; 85025; 87880; 96361; 96374; 99284; J7030; A4216; J2405

== ENCOUNTER 2022-06-14 13:28 | Emergency (ER) | payer OTHER, SELFPAY ==
[2022-06-14 13:29] VITALS: BP 153/105; PULSE 86; RESP 14; TEMP 36.6; O2SAT 95; BMI 38.5
--- NOTE | 2022-06-14 14:10 | EDS_ITS ---
HPI History of Present Illness Chief Complaint: Nausea/Vomiting Informant: patient Narrative Narrative: Patient present for evaluation persistent nausea vomiting past 8 days. She states started with sore throat with blisters. She had diarrhea initially. She is seen at ED on Friday. She states she had a rapid strep negative. She states she had signs of urine infection on testing however had no urine symptoms she is on Keflex twice a day. She states she follow-up on Friday with her PCP states the ulcers are worse. She was given mouthwash to help. Diarrhea started up again in the last day. She is unable to keep things down. Denies fevers. Denies pains in hands or feet. Decreased urine output. Cholecystectomy appendectomy hysterectomy in the past. Reviewing records from Friday urine had nitrites there is no cultures however she is asymptomatic. She had a rapid strep negative however culture did return positive for strep A. [facility] Medical History Alcohol use Anxiety Depression Diabetes Hypertension Home Medications metformin 500 mg tablet 500 mg PO BID 01/28/21 [History Last Taken Unknown] lisinopril 10 mg-hydrochlorothiazide 12.5 mg tablet 1 tab PO DAILY #14 tabs 04/03/21 [Rx Last Taken Unknown] cephalexin 500 mg capsule 500 mg PO BID #6 caps 06/14/22 [Rx Last Taken Unknown] ondansetron 4 mg disintegrating tablet 8 mg PO Q8H PRN PRN Nausea #20 tabs 06/14/22 [Rx Last Taken Unknown] Allergy/AdvReac Type Severity Reaction Status Date / Time aspirin Allergy Shortness Verified 06/14/22 13:28 of breath hydrocodone bitartrate Allergy Other Verified 06/14/22 13:28 [From Vicodin] morphine Allergy Other Verified 06/14/22 13:28 sulfamethoxazole Allergy Itching Verified 06/14/22 13:28 [From Bactrim] trimethoprim [From Bactrim] Allergy Itching Verified 06/14/22 13:28 Social History Smoking Status: Never smoker substance use type: other details: Benzodiazepines ROS ROS ED Constitutional Constitutional ED: Denies chills, fever(s) or sweats Eyes Eyes: Denies change in vision ENT ENT ED: Reports sore throat; Denies dysphagia Cardiovascular Cardiovascular: Denies chest pain, leg edema, palpitations or racing heartbeat Respiratory/Chest Respiratory/Chest: Denies cough, dyspnea or dyspnea on exertion Gastrointestinal Gastrointestinal: Reports diarrhea, nausea and vomiting; Denies abdominal pain Genitourinary Genitourinary ED: Denies dysuria, hematuria or urinary frequency Musculoskeletal Musculoskeletal: Denies back pain, extremity pain or neck pain Integumentary Denies rash or wounds Neurologic Neurologic: Denies headache(s), paresthesias or weakness EXAM Physical Exam Const Vital Signs: 06/14/22 13:29 06/14/22 15:28 06/14/22 16:24 Temperature 98 F Temperature Source Temporal Pulse Rate 86 Respiratory Rate 14 16 14 Blood Pressure 153/105 H Blood Pressure Mean 121 Pulse Ox 95 Oxygen Delivery Method Room Air Positive well nourished and well developed General Appearance ED: well developed and NAD HEENT Reports moist mucous membranes HEENT Narrative: 1 small ulcer upper hard palate. No posterior pharyngeal ulcerations no blistering. 1+ symmetric tonsils. Uvula midline. No trismus. normocephalic and atraumatic Eyes PERRL, EOMs intact bilaterally and conjunctivae normal General Eye ED: Yes normal appearance of both eyes Neck no lymphadenopathy and supple General: Negative for tenderness Chest Wall Chest: Negative for tenderness Resp normal respiratory effort and normal air movement Effort and Inspection: symmetric chest movement; Negative for respiratory distress Cardio regular rate, regular rhythm and no murmurs Peripheral Pulses: pulses 2+ throughout GI normal to inspection, nondistended, normoactive bowel sounds and non-tender Palpation: Negative for guarding or rebound tenderness present Back/Spine no CVA tenderness and no thoracic nor lumbar tenderness Extremity normal to inspection General Extremety ED: Negative for edema or tenderness General Extremity: Negative for edema Neuro oriented x3 and no sensory deficits noted Sensorium / Orientation: awake and alert Skin no rashes or lesions noted and no wounds Skin Narrative: No rashes on hands or feet. MDM MDM MDM Narrative Medical decision making narrative: Patient nontoxic nontender abdomen. Small stomatitis noted on the hard palate. Differential viral syndrome with pharyngitis. Strep in the differential. Vomiting and diarrhea, gastritis versus gastroenteritis. Currently on Keflex, denies foul-smelling stools therefore less likely C. difficile. Lab work White count also returned only 4.6. She started IV fluids with IV Zofran. After evaluating record she had a follow-up strep culture from a negative rapid strep that was positive for group A strep. Additional differential with her vomiting diarrhea rule out acute nephritis with her decreased urine output. Urine was negative for any blood. Her creatinine stable at 0.87. Clinically feeling better with IV fluids and Zofran. With the positive strep, her antibiotics was extended additional 3 days for 10-day course treatment. Review of records she had exudates 4 days ago which has resolved. I discussed with her PCP Dr. Dutton and update on the findings and he states there was more lesions during his exam that seems to be now improving. She does have Magic mouthwash to use discussed which before swallow to help with symptoms. She will do a 10-day course of antibiotics. Additional Zofran to use as needed. She will follow-up with PCP as an outpatient. All questions were answered. Lab Data Attestation: I reviewed the patient's lab results. Labs: Laboratory Results - last 24 hr 06/14/22 06/14/22 06/14/22 14:23 14:23 14:26 WBC 4.6 RBC 5.02 Hgb 13.4 Hct 42.0 MCV 83.7 MCH 26.7 L MCHC 31.9 L RDW Std Deviation 39.5 RDW Coeff of [place] 13.1 Plt Count 223 MPV 9.5 Immature Gran % (Auto) 0.400 Neut % (Auto) 70.2 H Lymph % (Auto) 22.4 [place] % (Auto) 4.0 Eos % (Auto) 2.6 Baso % (Auto) 0.4 Absolute Neuts (auto) 3.2 Absolute Lymphs (auto) 1.02 Nucleated RBC % 0 Sodium 140 Potassium 3.5 Chloride 101 Carbon Dioxide 33.0 H Anion Gap 6 BUN 15 Creatinine 0.87 Estim Creat Clear Calc 63.57 Est GFR (MDRD) Af Amer 91 Est GFR (MDRD) Non-Af 76 BUN/Creatinine Ratio 17.2 Glucose 229 H Calcium 9.1 Urine Color Yellow Urine Clarity Clear Urine pH 6.0 Ur Specific [place] 1.020 Urine Protein 30 H Urine Glucose (UA) 50 H Urine Ketones 50 H Urine Occult Blood Negative Urine Nitrite Negative Urine Bilirubin 1 H Urine Urobilinogen 4 H Ur Leukocyte Esterase Negative Urine RBC 0 SEEN Urine WBC 0-5 SEEN Ur Squamous Epith Cells 0-5 SEEN Urine Bacteria RARE Urine Mucus 1+ Discharge Plan Triage Chief Complaint: Nausea/Vomiting ED Provider: Ignacio Lebron Dx/Rx/DC Orders Clinical Impression: Pharyngitis, streptococcal, Stomatitis, Nausea vomiting and diarrhea Instructions: ED Diet Vomiting Diarrhea, ED Pharyngitis, Strep (Confirmed) Prescriptions: New cephalexin 500 mg capsule 500 mg PO BID Qty: 6 0RF Rx Instructions: Added to previous prescription for total 10-day treatment. ondansetron [ondansetron] 4 mg tablet,disintegrating 8 mg PO Q8H PRN PRN (Reason: Nausea) Qty: 20 0RF No Action metformin 500 mg tablet 500 mg PO BID Label Comments: TAKE 2 TABLETS BY MOUTH ONCE DAILY lisinopril-hydrochlorothiazide 10-12.5 mg tablet 1 tab PO DAILY Qty: 14 0RF Primary Care Provider: Zane Dutton Referrals: Zane Dutton MD [Primary Care Provider] - 3-5 Days Activity Restrictions/Additional Instructions: Your your strep culture from 4 days ago was positive. Finish your Keflex with additional 3 days sent to your pharmacy. Zofran as needed. Continue your BMX mouthwash for your mild pain. There is one residual ulcer on the hard palate noted. Labs are stable normal kidney function and electrolytes. Follow-up with your doctor. Disposition Disposition: Home, Self Care Discharge Date/Time: 06/14/22 16:25
[2022-06-14] MEDS: 0.9% Normal Saline 1,000 ML 1000 ML IV (14:28)
[2022-06-14] MEDS: Ondansetron 4 MG/2 ML Vial IV (14:28)
[2022-06-14 14:34] LABS: Red Blood Cells-Urine 0 SEEN /hpf (0-5)
[2022-06-14 14:36] LABS: Absolute Lymphocyte Count 1.02 X10^3/uL (0.83-4.51); Absolute Neutrophil Count 3.2 X10^3/uL (2.0-7.7); Basophil# 0.02 X10^3/uL; Basophil% 0.4 % (0-1); Eosinophil# 0.12 X10^3/uL; Eosinophils% 2.6 % (0-5); Hemoglobin 13.4 g/dL (12.0-15.0); Lymphocyte # 1.02 X10^3/ul (0.83-4.51); Lymphocyte % 22.4 % (19-41); Mean Corp Hgb Conc 31.9 g/dL (32-36); Mean Corpuscular Hgb 26.7 pg (27.0-32.0); Mean Corpuscular Volume 83.7 fL (81-99); Mean Platelet Vol. 9.5 fl (6.2-12.0); Monocyte# 0.18 X10^3/uL; NRBC Flagged by Analyzer 0 % (0-5); Neutrophil # 3.19 X10^3/uL (2.7-7.7); Neutrophil % 70.2 % (47-70); Platelet Count 223 K/mm3 (150-450); RBC Distribution Width CV 13.1 % (11.6-14.6); RBC Distribution Width SD 39.5 fl (35.1-43.9); Red Blood Count 5.02 M/mm3 (4.2-5.4); White Blood Count 4.6 K/mm3 (4.4-11.0)
[2022-06-14 14:45] LABS: Color, Urine Yellow (Yellow); Glucose, Dipstick 50 mg/dl (Normal); Ketone-Dipstick 50 mg/dl (Negative); Leukocyte Esterase-Dipstick Negative /ul (Negative); Nitrite-Dipstick Negative (Negative); Occult Blood-Urine Negative /ul (Negative); Protein-Dipstick 30 mg/dl (Negative); Urine Clarity Clear (Clear); Urine Urobilinogen 4 mg/dl (Normal)
[2022-06-14 14:48] LABS: Anion Gap 6 (5-15); BUN 15 mg/dL (7-18); BUN/Creat Ratio 17.2 RATIO (10-20); Calcium,Total 9.1 mg/dL (8.5-10.1); Chloride 101 mmol/L (98-107); Creatinine, Serum 0.87 mg/dL (0.55-1.02); EST Glomerular Filtration Rate 76 mL/min (>60); Est Glom Filt Rate - Afr Amer 91 mL/min (>60); Estimated Creatinine Clearance 63.57 ml/min; Glucose 229 mg/dL (74-106); Potassium 3.5 mmol/L (3.5-5.1); Sodium Level 140 mmol/L (136-145)
[2022-06-14 14:55] LABS: Urine Bilirubin Dipstick 1 mg/dL (Negative)
[2022-06-14 14:57] LABS: Squamous Epithelial Cells - UA 0-5 SEEN /hpf (5-10); White Blood Cells 0-5 SEEN /hpf (0-5)
[2022-06-14 14:58] LABS: Mucous, Urine 1+ /hpf (<or=2+)
[2022-06-14 15:00] LABS: Bacteria RARE /hpf (None Seen)
[2022-06-14 15:28] VITALS: RESP 16
[2022-06-14 16:24] VITALS: RESP 14
== END 2022-06-14 16:25 | disposition home or self-care (01) ==
PROVIDERS: Emergency Provider Emergency Medicine; PCP Family Medicine; Visit Provider Emergency Medicine
DX: J02.9 Acute pharyngitis, unspecified (principal); E11.9 Type 2 diabetes mellitus without complications; R11.2 Nausea with vomiting, unspecified; R19.7 Diarrhea, unspecified; I10 Essential (primary) hypertension
CPT/HCPCS: 80048; 81001; 85025; 96361; 96374; 99283; J7030; A4216; J2405

== ENCOUNTER 2023-07-21 07:49 | Emergency (ER) | payer OTHER, SELFPAY ==
[2023-07-21 07:50] VITALS: BP 163/87; PULSE 70; RESP 16; TEMP 36.4; O2SAT 98; BMI 38.5
--- NOTE | 2023-07-21 08:08 | CT_ITS ---
INDICATION: kidney stone EXAMINATION: CT ABDOMEN AND PELVIS WITHOUT CONTRAST - CT Abdomen And Pelvis W/O Contrast Injection TECHNIQUE: Helically acquired images were obtained of the abdomen and pelvis without oral or IV contrast. A radiation dose optimization technique was used for this scan. IV Contrast dosage and agent: None. Oral contrast: None. RADIATION DOSAGE (If Supplied By Facility): CTDIvol = ( 17.21 ) mGy, DLP = ( 928.57 ) mGycm COMPARISON: Prior study dated: 09/23/2013 FINDINGS: LOWER CHEST: Mild atelectatic changes in the right lower lung. No cardiomegaly or pericardial effusion. LIVER: Hepatomegaly. The liver measures about 26 cm in length. No focal lesion is seen without contrast GALLBLADDER AND BILIARY TREE: Status post cholecystectomy. No intra- or extrahepatic biliary ductal dilation. PANCREAS: No focal cystic or solid mass. SPLEEN: Mild splenomegaly. The spleen measures about 14.5 cm in length. ADRENAL GLANDS: No nodules. KIDNEYS AND URETERS: Anteriorly malrotated right kidney. No hydronephrosis. PERITONEUM: No ascites or free air. No other fluid collection. BOWEL: Surgical sutures in the region of the cecum consistent with previous appendectomy. Surgical anastomosis sutures in the region of the rectosigmoid colon. No evidence of acute diverticulitis. Normal in caliber small bowel loops. LYMPH NODES: No enlarged mesenteric or retroperitoneal lymph nodes. VESSELS: Aorta is non-dilated. URINARY BLADDER: Unremarkable. REPRODUCTIVE ORGANS: No pelvic masses. ABDOMINAL WALL: Small umbilical hernia containing fat with adjacent bulging small bowel loop. Proximal ventral hernia containing fat again bulging of transverse colon. BONES: No lytic or blastic abnormality. CT/Abdomen/Pelvis without Cont IMPRESSION: 1. No evidence of urinary tract stones or hydronephrosis. 2. No focal acute inflammatory process. 3. Hepatosplenomegaly unchanged. 4. Status post cholecystectomy, appendectomy and hysterectomy. 5. Ventral hernias as described above. Electronically Signed: Dami Larkin MD at 9:50 EST ,
--- NOTE | 2023-07-21 08:09 | EX.ED.DYSGE1 ---
HPI History of Present Illness Chief Complaint: Flank Pain Informant: patient and parent Narrative Narrative: 43-year-old female presenting to the emergency room with left flank pain. Patient states last Friday and Friday she developed pain in the right flank. She states it has been constant 24 hours a day. It is now starting to come around onto the side of her left lateral mid quadrant abdomen. Nothing seems to make it better or worse. She was able to keep working last week and on Friday she had the day off so she went to [facility]. She reports that she had blood work and a urinalysis performed. Mother reports that she also had a CT scan. She states there she saw a nurse practitioner who told her she had kidney stones. She states she was placed on a antibiotic and given Tylenol with codeine. She had some nausea and vomiting on Friday and Friday. She denies any leg symptoms. She denies any bowel symptoms. She notes a history of colorectal cancer about 10 years ago with resection and anastomosis. She states that she had a recent colonoscopy with Dr. Rowland that was negative. She notes that she has been urinating less. Pain does not wax and wane. It is not made worse with movement. She denies rashes or fever. She denies any anterior abdominal pain. She denies any shortness of breath chest pain long cardiology respiratory/URI symptoms. She states that she initially felt that this could perhaps the beginning send back pain from lifting at work does not recall any specific event that would have triggered back pain. She is a diabetic and states her blood sugars have been running 300 in the evenings which is actually improved for her. She denies any vaginal or pelvic complaints. She wonders if the nausea and vomiting was from the Tylenol with codeine. [facility] Medical History (Updated 07/21/23 @ 10:[address] Robb Longo, DO) Adenocarcinoma of the colon Alcohol use Anxiety Depression Diabetes Hypertension Home Medications metformin 500 mg tablet 500 mg PO BID 01/28/21 [History Last Taken Unknown] lisinopril 10 mg-hydrochlorothiazide 12.5 mg tablet 1 tab PO DAILY #14 tabs 04/03/21 [Rx Last Taken Unknown] cephalexin 500 mg capsule 500 mg PO BID #6 caps 06/14/22 [Rx Last Taken Unknown] ondansetron 4 mg disintegrating tablet 8 mg (2 x 4 mg) PO Q8H PRN PRN Nausea #20 tabs 06/14/22 [Rx Last Taken Unknown] cyclobenzaprine 10 mg tablet 10 mg PO TID PRN Muscle Spasm #15 TABLETS 07/21/23 [Rx Last Taken Unknown] oxycodone-acetaminophen 5 mg-325 mg tablet 1 tab PO Q6H PRN PRN Pain 3 days #12 TABLETS 07/21/23 [Rx Last Taken Unknown] Allergy/AdvReac Type Severity Reaction Status Date / Time aspirin Allergy Shortness Verified 07/21/23 07:53 of breath hydrocodone bitartrate Allergy Other Verified 07/21/23 07:53 [From Vicodin] morphine Allergy Other Verified 07/21/23 07:53 sulfamethoxazole Allergy Itching Verified 07/21/23 07:53 [From Bactrim] trimethoprim [From Bactrim] Allergy Itching Verified 07/21/23 07:53 Surgical History (Updated 07/21/23 @ 08:[address] Robb Longo DO) History of partial colectomy Social History Smoking Status: Never smoker substance use type: other details: Benzodiazepines ROS ROS ED Constitutional Constitutional ED: Denies chills, fever(s) or weight loss Eyes Eyes: Denies change in vision or diplopia ENT ENT ED: Denies ear pain, rhinorrhea or sore throat Cardiovascular Cardiovascular: Denies chest pain, orthopnea, palpitations or racing heartbeat Respiratory/Chest Respiratory/Chest: Denies cough, dyspnea or orthopnea Gastrointestinal Gastrointestinal: Reports nausea and vomiting; Denies abdominal pain, constipation, diarrhea or melena Genitourinary Genitourinary ED: Reports other Details: Decreased urination ; Denies dysuria, hematuria or urinary frequency Musculoskeletal Musculoskeletal: Reports back pain; Denies arthralgias or myalgias Integumentary Denies abscess or rash Neurologic Neurologic: Denies headache(s) or weakness Psychiatric Psychiatric: Denies anxiety, depression, suicidal ideation or suicidal thoughts Endocrine Endocrinology: Denies polydipsia, polyphagia or polyuria Allergic/Immunologic Allergic/Immunologic ED: Denies mouth swelling, tongue swelling or urticaria EXAM Physical Exam Const Vital Signs: 07/21/23 07:50 Temperature 97.5 F L Temperature Source Temporal Pulse Rate 70 Respiratory Rate 16 Blood Pressure 163/87 H Blood Pressure Mean 112 Pulse Ox 98 Oxygen Delivery Method Room Air Positive well nourished, well developed and obese General Appearance ED: well developed Nutritional Appearance: obese HEENT Reports normocephalic, head/scalp atraumatic and moist mucous membranes Eyes PERRL and EOMs intact bilaterally Neck no lymphadenopathy, supple and no JVD Resp normal respiratory effort and clear to auscultation bilaterally Cardio regular rate, regular rhythm and no murmurs GI normal to inspection, nondistended, normoactive bowel sounds and non-tender Palpation: soft Back/Spine no CVA tenderness and normal ROM Back/Spine Narrative: Patient reports tenderness to palpation around the left lumbar paraspinal musculature. There are no rashes. No rib tenderness. Extremity normal to inspection General Extremety ED: Negative for edema General Extremity: Negative for edema Neuro oriented x3 and CN's II-XII intact bilaterally Sensorium / Orientation: alert Motor Exam: strength 5/5 throughout Psych mental status grossly normal Mood & Affect: Negative for depressed or tearful Skin no rashes or lesions noted and no wounds MDM MDM MDM Narrative Medical decision making narrative: Basic blood work showed a normal white count at 6.4 with a glucose of 251. Creatinine 0.78. Lipase and liver enzymes are normal. Broad-based differential was considered including but not limited to infection, obstruction, colonic complications, biliary and pancreatic complications. Based on her symptomology location of pain and reproducibility I doubt that this is pulmonary embolism or cardiogenic in nature. I doubt aortic in nature. test is negative. Urinalysis demonstrates no overt infection. There is a small amount of protein in the urine. The above results were discussed with the patient. A CT of the abdomen pelvis without contrast was obtained. This demonstrated mild splenomegaly. I did not appreciate an obvious kidney stone or hydronephrosis/hydroureter. Patient received a dose of Toradol and has been resting comfortably. Therefore the Dilaudid was held. I discussed the patient and her emergency department evaluation with her and her mother. I am not seeing an obvious emergent cause for the patient's pain. The patient's pain is reproducible when I palpate on the paraspinal musculature so this could very well be musculoskeletal in nature. I am going to have the patient discontinue her Tylenol with codeine as it appears to be causing nausea with vomiting. I can write for some [place] as well as some Flexeril. I have asked that she schedule a follow-up appointment with her doctor. Patient was advised on signs and symptoms and return instructions. She notes understanding. History & Record Review Discussion w/independent historian: Patient and Family Additional record(s) reviewed:: Prior ED visit Lab Data Attestation: I reviewed the patient's lab results. Labs: Laboratory Results - last 24 hr 07/21/23 07/21/23 08:10 08:29 WBC 6.4 RBC 4.90 Hgb 13.2 Hct 40.2 MCV 82.0 MCH 26.9 L MCHC 32.8 RDW Std Deviation 38.5 RDW Coeff of Layne 13.1 Plt Count 285 MPV 8.9 Immature Gran % (Auto) 0.500 Neut % (Auto) 53.7 Lymph % (Auto) 34.3 O'Brien % (Auto) 5.5 Eos % (Auto) 5.1 H Baso % (Auto) 0.9 Absolute Neuts (auto) 3.5 Absolute Lymphs (auto) 2.20 Nucleated RBC % 0 Sodium 137 Potassium 4.1 Chloride 104 Carbon Dioxide 30.0 Anion Gap 3 L BUN 8 Creatinine 0.78 Estim Creat Clear Calc 96.45 Est GFR (MDRD) Af Amer 104 Est GFR (MDRD) Non-Af 86 BUN/Creatinine Ratio 10.3 Glucose 251 H Calcium 9.4 Total Bilirubin 0.40 Direct Bilirubin 0.13 AST 21 ALT 45 Alkaline Phosphatase 81 Total Protein 7.6 Albumin 3.5 Globulin 4.1 Lipase 40 Serum , Qual NEGATIVE Urine Color Yellow Urine Clarity Sl. Cloudy Urine pH 7.0 Ur Specific [place] 1.010 Urine Protein 15 H Urine Glucose (UA) 100 H Urine Ketones Negative Urine Occult Blood Negative Urine Nitrite Negative Urine Bilirubin Negative Urine Urobilinogen Normal Ur Leukocyte Esterase Negative Urine RBC 0 SEEN Urine WBC 0 SEEN Ur Squamous Epith Cells 0-5 SEEN Urine Bacteria 0 SEEN Urine Mucus 0 SEEN Radiography Diagnostic Testing: Clinical Impression(s) from Imaging Studies Abdomen/Pelvis CT 07/21/23 08:08 IMPRESSION: 1. No evidence of urinary tract stones or hydronephrosis. 2. No focal acute inflammatory process. 3. Hepatosplenomegaly unchanged. 4. Status post cholecystectomy, appendectomy and hysterectomy. 5. Ventral hernias as described above. Electronically Signed: Dami Larkin MD at 9:50 EST , Discharge Plan Triage Chief Complaint: Flank Pain ED Provider: Robb Longo Dx/Rx/DC Orders Clinical Impression: Acute left flank pain, Nausea & vomiting Instructions: ED Flank Pain, Uncertain Cause Prescriptions: New cyclobenzaprine [cyclobenzaprine] 10 mg tablet 10 mg PO TID PRN (Reason: Muscle Spasm) Qty: 15 0RF oxycodone-acetaminophen [oxycodone-acetaminophen] 5-325 mg tablet 1 tab PO Q6H PRN PRN (Reason: Pain) 3 Days Qty: 12 0RF No Action metformin 500 mg tablet 500 mg PO BID Patient Comments: TAKE 2 TABLETS BY MOUTH ONCE DAILY lisinopril-hydrochlorothiazide 10-12.5 mg tablet 1 tab PO DAILY Qty: 14 0RF cephalexin 500 mg capsule 500 mg PO BID Qty: 6 0RF Rx Instructions: Added to previous prescription for total 10-day treatment. ondansetron [ondansetron] 4 mg tablet,disintegrating 8 mg PO Q8H PRN PRN (Reason: Nausea) Qty: 20 0RF Primary Care Provider: Zane Dutton Referrals: Zane Dutton MD [Primary Care Provider] - As soon as possible Disposition Disposition: Home, Self Care
[2023-07-21] MEDS: Ketorolac 30 MG/ML Syringe IV (08:23)
[2023-07-21] MEDS: Ondansetron 4 MG/2 ML Vial IV (08:23)
[2023-07-21 08:27] LABS: Absolute Neutrophil Count 3.5 X10^3/uL (2.0-7.7); Basophil# 0.06 X10^3/uL; Basophil% 0.9 % (0-1); Eosinophil# 0.33 X10^3/uL; Eosinophils% 5.1 % (0-5); Hematocrit 40.2 % (37-47); Hemoglobin 13.2 g/dL (12.0-15.0); Lymphocyte % 34.3 % (19-41); Mean Corp Hgb Conc 32.8 g/dL (32-36); Mean Corpuscular Hgb 26.9 pg (27.0-32.0); Mean Platelet Vol. 8.9 fl (6.2-12.0); Monocyte# 0.35 X10^3/uL; Monocyte% 5.5 % (0-10); NRBC Flagged by Analyzer 0 % (0-5); Neutrophil # 3.45 X10^3/uL (2.7-7.7); Neutrophil % 53.7 % (47-70); Platelet Count 285 K/mm3 (150-450); RBC Distribution Width CV 13.1 % (11.6-14.6); RBC Distribution Width SD 38.5 fl (35.1-43.9); White Blood Count 6.4 K/mm3 (4.4-11.0)
[2023-07-21 08:37] LABS: Bacteria 0 SEEN /hpf (None Seen); Mucous, Urine 0 SEEN /hpf (<or=2+); Red Blood Cells-Urine 0 SEEN /hpf (0-5); White Blood Cells 0 SEEN /hpf (0-5)
[2023-07-21 08:40] LABS: AST(SGOT) 21 U/L (15-37); Alanine Aminotransfer ALT/SGPT 45 U/L (13-56); Albumin, Serum 3.5 g/dL (3.2-5.0); Alkaline Phosphatase 81 U/L (45-117); Anion Gap 3 (5-15); BUN 8 mg/dL (7-18); BUN/Creat Ratio 10.3 RATIO (10-20); Bilirubin, Direct 0.13 mg/dL (0.00-0.30); Calcium,Total 9.4 mg/dL (8.5-10.1); Chloride 104 mmol/L (98-107); Creatinine, Serum 0.78 mg/dL (0.55-1.02); EST Glomerular Filtration Rate 86 mL/min (>60); Est Glom Filt Rate - Afr Amer 104 mL/min (>60); Estimated Creatinine Clearance 96.45 ml/min; Globulin 4.1 g/dL (2.2-4.2); Glucose 251 mg/dL (74-106); Lipase 40 U/L (13-75); Potassium 4.1 mmol/L (3.5-5.1); Protein, Total 7.6 g/dL (6.4-8.2); Sodium Level 137 mmol/L (136-145)
[2023-07-21 08:41] LABS: Color, Urine Yellow (Yellow); Glucose, Dipstick 100 mg/dl (Normal); Ketone-Dipstick Negative (Negative); Leukocyte Esterase-Dipstick Negative /ul (Negative); Nitrite-Dipstick Negative (Negative); Occult Blood-Urine Negative /ul (Negative); Protein-Dipstick 15 mg/dl (Negative); Urine Bilirubin Dipstick Negative (Negative); Urine Clarity Sl. Cloudy (Clear); Urine Urobilinogen Normal (Normal)
[2023-07-21 08:47] LABS: Squamous Epithelial Cells - UA 0-5 SEEN /hpf (5-10)
[2023-07-21 08:48] LABS: Internal QC Validated? YES +Cl - CLEAR BKGD; Pregnancy, Serum, hCG Quali. NEGATIVE Negative; Record Kit Lot#, Serum Preg. 718086
[2023-07-21 10:14] VITALS: BP 155/95; PULSE 55; RESP 18; TEMP 36.8; O2SAT 98
== END 2023-07-21 10:14 | disposition home or self-care (01) ==
PROVIDERS: Emergency Provider Emergency Medicine; PCP Family Medicine; Visit Provider Emergency Medicine
DX: R10.9 Unspecified abdominal pain (principal); E11.9 Type 2 diabetes mellitus without complications; R11.2 Nausea with vomiting, unspecified; R16.1 Splenomegaly, not elsewhere classified; Z98.0 Intestinal bypass and anastomosis status; Z85.038 Personal history of other malignant neoplasm of large intestine; I10 Essential (primary) hypertension; E66.9 Obesity, unspecified
CPT/HCPCS: 74176; 80048; 80076; 81001; 83690; 84703; 85025; 96374; 96375; 99283; A4216; J2405

== ENCOUNTER → 2024-01-02 | Outpatient (CLI) | payer OTHER, SELFPAY ==
[2024-01-02 15:30] LABS: Absolute Lymphocyte Count 2.59 X10^3/uL (0.83-4.51); Absolute Neutrophil Count 3.5 X10^3/uL (2.0-7.7); Basophil# 0.05 X10^3/uL; Basophil% 0.7 % (0-1); Eosinophil# 0.22 X10^3/uL; Eosinophils% 3.2 % (0-5); Hematocrit 39.5 % (37-47); Hemoglobin 12.5 g/dL (12.0-15.0); Lymphocyte # 2.59 X10^3/ul (0.83-4.51); Mean Corp Hgb Conc 31.6 g/dL (32-36); Mean Corpuscular Hgb 25.8 pg (27.0-32.0); Mean Corpuscular Volume 81.6 fL (81-99); Mean Platelet Vol. 8.4 fl (6.2-12.0); Monocyte% 5.9 % (0-10); NRBC Flagged by Analyzer 0 % (0-5); Neutrophil # 3.53 X10^3/uL (2.7-7.7); Neutrophil % 51.9 % (47-70); Platelet Count 294 K/mm3 (150-450); Red Blood Count 4.84 M/mm3 (4.2-5.4); White Blood Count 6.8 K/mm3 (4.4-11.0)
[2024-01-02 15:34] LABS: Erythrocyte Sedimentation Rate 36 mm/hr (0-30)
[2024-01-02 16:14] LABS: ALB/GLOB Ratio 0.8 RATIO (0.9-2.4); AST(SGOT) 11 U/L (15-37); Alanine Aminotransfer ALT/SGPT 18 U/L (13-56); Albumin, Serum 3.6 g/dL (3.2-5.0); Alkaline Phosphatase 70 U/L (45-117); Anion Gap 7 (5-15); BUN 13 mg/dL (7-18); BUN/Creat Ratio 15.7 RATIO (10-20); Calcium,Total 9.2 mg/dL (8.5-10.1); Chloride 104 mmol/L (98-107); Creatinine, Serum 0.83 mg/dL (0.55-1.02); EST Glomerular Filtration Rate 80 mL/min (>60); Est Glom Filt Rate - Afr Amer 97 mL/min (>60); Globulin 4.4 g/dL (2.2-4.2); Glucose 132 mg/dL (74-106); Potassium 3.9 mmol/L (3.5-5.1); Rheumatoid Factor < 10.0 IU/mL (<15); Sodium Level 138 mmol/L (136-145)
[2024-01-02 16:19] LABS: Hepatitis B Surface Antibody Non-Reactive; Hepatitis B Surface Antigen Non-Reactive (Nonreactive); Hepatitis C Antibody Non-Reactive (Nonreactive)
[2024-01-05 14:09] LABS: CCP IgG Antibodies 5 units (0-19)
== END | disposition home or self-care (01) ==
LOC: MTLAB 13:55
PROVIDERS: PCP Family Medicine; Referring Provider Internal Medicine Rheumatology; Visit Provider Internal Medicine Rheumatology
DX: M06.4 Inflammatory polyarthropathy (principal); Z79.899 Other long term (current) drug therapy
CPT/HCPCS: 36415; 80053; 85025; 85652; 86140; 86200; 86431; 86706; 86803; 87340

== ENCOUNTER → 2024-03-22 | Outpatient (CLI) | payer OTHER, SELFPAY ==
[2024-03-22 18:36] LABS: Absolute Lymphocyte Count 2.75 X10^3/uL (0.83-4.51); Absolute Neutrophil Count 4.6 X10^3/uL (2.0-7.7); Basophil# 0.04 X10^3/uL; Basophil% 0.5 % (0-1); Eosinophil# 0.28 X10^3/uL; Eosinophils% 3.5 % (0-5); Lymphocyte # 2.75 X10^3/ul (0.83-4.51); Mean Corp Hgb Conc 32.4 g/dL (32-36); Mean Corpuscular Hgb 26.9 pg (27.0-32.0); Mean Platelet Vol. 9.5 fl (6.2-12.0); Monocyte# 0.43 X10^3/uL; Monocyte% 5.3 % (0-10); NRBC Flagged by Analyzer 0 % (0-5); Neutrophil # 4.55 X10^3/uL (2.7-7.7); Neutrophil % 56.3 % (47-70); Platelet Count 309 K/mm3 (150-450); RBC Distribution Width CV 13.8 % (11.6-14.6); RBC Distribution Width SD 40.9 fl (35.1-43.9); Red Blood Count 4.46 M/mm3 (4.2-5.4); White Blood Count 8.1 K/mm3 (4.4-11.0)
[2024-03-22 18:50] LABS: ALB/GLOB Ratio 0.9 RATIO (0.9-2.4); AST(SGOT) 9 U/L (15-37); Alanine Aminotransfer ALT/SGPT 19 U/L (13-56); Albumin, Serum 3.6 g/dL (3.2-5.0); Alkaline Phosphatase 61 U/L (45-117); Anion Gap 8 (5-15); BUN 12 mg/dL (7-18); BUN/Creat Ratio 14.4 RATIO (10-20); Calcium,Total 9.3 mg/dL (8.5-10.1); Chloride 105 mmol/L (98-107); Creatinine, Serum 0.84 mg/dL (0.55-1.02); EST Glomerular Filtration Rate 79 mL/min (>60); Est Glom Filt Rate - Afr Amer 95 mL/min (>60); Globulin 3.9 g/dL (2.2-4.2); Glucose 236 mg/dL (74-106); Potassium 3.7 mmol/L (3.5-5.1); Protein, Total 7.5 g/dL (6.4-8.2); Sodium Level 138 mmol/L (136-145)
== END | disposition home or self-care (01) ==
PROVIDERS: PCP Family Medicine; Referring Provider Internal Medicine Rheumatology; Visit Provider Internal Medicine Rheumatology
DX: M06.4 Inflammatory polyarthropathy (principal); Z79.899 Other long term (current) drug therapy
CPT/HCPCS: 36415; 80053; 85025